=== PATIENT | female | born 1965 | race Caucasian/White ===

== ENCOUNTER 2018-11-05 01:21 | Inpatient (IN) ==
[2018-11-05] MEDS ORDERED: GI COCKTAIL ED USE PO ONE (01:46)
[2018-11-05] MEDS ORDERED: FAMOTIDINE 20MG IV PUSH 20 MG/5 ML SYR IV STA (01:46)
[2018-11-05 02:34] LABS: Basophils # (auto) 0.01 K/uL (0-0.2); Basophils % (auto) 0.1 %; Eosinophils # (auto) 0.02 K/uL (0-0.5); Eosinophils % (auto) 0.2 %; Hematocrit (blood only) 38.3 % (37-47); Hemoglobin 13.9 g/dL (12.0-16.0); Immature Granulocytes # (auto) 0.05 K/uL (0.00-0.02); Immature Granulocytes % (auto) 0.4 %; Lymphocytes # (auto) 1.54 K/uL (1.2-3.4); Lymphocytes % (auto) 13.1 %; Mean Corpuscular Hgb Conc 36.3 g/dL (32-36); Mean Corpuscular Volume 89.1 fL (80-100); Mean Platelet Volume 8.8 fL (7.4-10.4); Monocytes # (auto) 0.71 K/uL (0.11-0.59); Neutrophils # (auto) 9.42 K/uL (1.4-6.5); Neutrophils % (auto) 80.2 %; Platelet Count 215 K/uL (130-400); RDW Standard Deviation 41.9 fL (36.4-46.3); White Blood Count 11.75 K/uL (4.8-10.8)
[2018-11-05 03:13] LABS: Alanine Aminotransferase 48 U/L (12-78); Albumin Level 3.9 gm/dl (3.4-5.0); Alkaline Phosphatase 100 U/L (45-117); Aspartate Aminotransferase 58 U/L (15-37); Bilirubin,Total 0.7 mg/dl (0.2-1); Blood Urea Nitrogen 5 mg/dl (7-18); Calcium 8.5 mg/dl (8.5-10.1); Carbon Dioxide 25 mmol/L (21-32); Chloride 80 mmol/L (98-107); Creatinine Clr Calc Pharmacy 101.1 ml/min; Est GFR (Non-African American) 93.1; Globulin 3.8 gm/dl (2.5-4.0); Glucose 112 mg/dl (70-99); Potassium 3.9 mmol/L (3.5-5.1); Sodium 117 mmol/L (136-145); Total Protein 7.7 gm/dl (6.4-8.2); Troponin I < 0.015 ng/ml (0-0.045)
[2018-11-05 03:55] LABS: Appearance Urine Cloudy (Clear); Bacteria Urine Automated Negative (Negative); Bilirubin Urine Negative (Negative); Blood Urine Negative (Negative); Color Urine Yellow; Epithelial Cell Urine Auto >30 /lpf (0-5); Glucose Urine UA Negative (Negative); Ketones Urine Trace (Negative); Leukocyte Esterase Urine Negative (Negative); Nitrite Urine Negative (Negative); Protein Urine Negative (Negative); Urobilinogen Urine Negative (Negative); pH Urine 6.5 (4.5-7.5)
[2018-11-05 04:32] LABS: RBC Urine Automated 0-4 /hpf (0-4)
--- NOTE | 2018-11-05 05:26 | History & Physical Report ---
Date of Service November 05, 2018 Assessment & Plan (1) Hyponatremia: [id number]. No neurological complaints. Unknown baseline Na level, document from 2009 mentions Na of 125 in setting of GI illness so hyponatremia may be chronic to some degree, Most likely multifactorial - beer potomania and low solute intake in addition to HCTZ use, less likely Fluoxetine use, GI losses. Patient does appear mildly dry on exam as well. -Admit to PCU -Check urine and serum osmolality -Check urine Na -Check TSH -Check lipid panel -Monitor BMP q 4 hours -Additional testing pending results above -Hold HCTZ for now Present on Admission?: Yes (2) Abdominal pain: Abdominal exam relatively benign. Labs to include LFTs and Lipase unremarkable. ?GERD ?Gas -Continue Omeprazole 20mg po daily -Zofran PRN -Simethicone PRN Present on Admission?: Yes (3) Hypertension: Blood pressure elevated at present -Hold HCTZ due to hyponatremia -Continue Lisinopril -Consider starting Amlodipine/CCB -Continue to monitor Present on Admission?: Yes (4) GERD (gastroesophageal reflux disease): Chronic. -Continue Omeprazole daily Present on Admission?: Yes (5) Tobacco abuse: +Tobacco use - 1ppd for years. -Nicoderm 21mg patch -Tobacco cessation counseling Present on Admission?: Yes (6) Alcohol dependence: Patient reports drinking 15 beers/day, last drink yesterday afternoon. No history of withdrawal symptoms or seizures. EtOH level=0 -Check B12 and Folate level -AWSS at risk protocol with IV Ativan -Banana bag x 1 -Thiamine 100mg po daily (7) Anxiety and depression: Chronic, stable -Continue Fluoxetine 20mg po daily (8) Dyslipidemia: Check lipid panel -Continue Atorvastatin 10mg po daily F/E/N - Banana bag x 500mg then NSS at 125mL/hr x 1 liter, monitor Na q 4 hours, check Mg and PO4 x 1, Regular diet as tolerated. May need fluid restriction if workup suggestive of SIADH Ppx - low risk for DVT Code - Full Dispo- Admit to PCU History of Present Illness Chief Complaint: abdominal pain Primary Care Provider: Marissa Carl, DO 53yo C female with history of HTN, GERD, Anxiety/Depression presenting with abdominal pain. Patient began having lower abdominal cramping at appx 18:00 last evening. Also with nausea and non-bloody/non-bilious emesis and 4-5 episodes of watery diarrhea. Patient denies fever but has had some subjective chills. Denies BRINK, visual changes, seizure, confusion/AMS. +Heavy EtOH use - patient reports drinking 15 beers/day. Poor appetite and decreased PO intake Vx=415 today, uncertain if chronic or acute. Record from 2009 mention Na of 125 ER Course: Maalox/Simethicone, Pepcid Allergies Allergy/AdvReac Type Severity Reaction Status Date / Time No Known Allergies Allergy Unknown Verified 11/05/18 04:55 Home Medications Home Medications Medication Instructions Recorded Confirmed Type atorvastatin 10 mg PO DAILY 11/05/18 11/05/18 History fluoxetine 20 mg PO DAILY 11/05/18 11/05/18 History hydrochlorothiazide 12.5 mg PO DAILY 11/05/18 11/05/18 History lisinopril 40 mg PO DAILY 11/05/18 11/05/18 History omeprazole 20 mg PO DAILY 11/05/18 11/05/18 History Past Med/Surg History Medical History Anxiety and depression EtOH dependence GERD (gastroesophageal reflux disease) Hypertension Hyponatremia Surgical History History of appendectomy History of tubal ligation Family History Other Coronary heart disease Diabetes Hypertension Social History Feels Safe at Home: Yes Smoking Status: Current every day smoker Hx Alcohol Use: Yes Hx Substance Use: No Review of Systems Review of Systems: All systems reviewed & are unremarkable except as noted in HPI & below +chills +cough productive for clear sputum, chronic +nausea and vomiting as above +diarrhea +decresaed UOP Physical Exam Physical Exam: General: patient resting comfortably, NAD, non-toxic in appe arance, AA&O x 4 Skin: warm, dry, intact, +telangiectasias on face HEENT: NC/AT, PERRL, EOMI, anicteric sclera, conjunctiva without injection, external ear normal to inspection and nontender, nares patent, moist mucus membranes, dentition intact, no oropharyngeal lesions, neck supple, trachea midline, no LAD, no thyromegaly, no JVD Heart: +S1/S2, regular, no m/r/g Lungs: equal air entry bilaterally, no rales/rhonchi/wheezes Abd: obese, +BS, soft, ND, no masses/organomegaly/ascites, diffusely tender with deep palpation, no rebound/guarding/peritoneal signs Ext: warm, 2+ pulses in UE/LE bilaterally, no clubbing/cyanosis or edema Neuro: nonfocal, patient AA&O x 4, speech intact, no facial droop, moving all extremities on command with equal strength 5/5 Results & Data Vital Signs (Past 12 Hours) Vital Signs Temp Pulse Resp BP BP Pulse Ox 11/05/18 03:22 18 182/92 H 98 11/05/18 01:24 36.4 C L 91 H 18 183/88 H 98 Laboratory Results Lab Results 11/05/18 11/05/18 11/05/18 Range/Units 02:22 02:22 02:22 WBC 11.75 H (4.8-10.8) K/uL RBC 4.30 (4.2-5.4) M/uL Hgb 13.9 (12.0-16.0) g/dL Hct 38.3 (37-47) % MCV 89.1 (80-100) fL MCH 32.3 (25-34) pg MCHC 36.3 H (32-36) g/dL RDW Std Deviation 41.9 (36.4-46.3) fL RDW Coeff of Nadeen 13.0 (11.5-14.5) % Plt Count 215 (130-400) K/uL MPV 8.8 (7.4-10.4) fL Immature Gran % (Auto) 0.4 % Neut % (Auto) 80.2 % Lymph % (Auto) 13.1 % [place] % (Auto) 6.0 % Eos % (Auto) 0.2 % Baso % (Auto) 0.1 % Immature Gran # (Auto) 0.05 H (0.00-0.02) K/uL Neut # (Auto) 9.42 H (1.4-6.5) K/uL Lymph # (Auto) 1.54 (1.2-3.4) K/uL [place] # (Auto) 0.71 H (0.11-0.59) K/uL Eos # (Auto) 0.02 (0-0.5) K/uL Baso # (Auto) 0.01 (0-0.2) K/uL Sodium 117 L* (136-145) mmol/L Potassium 3.9 (3.5-5.1) mmol/L Chloride 80 L (98-107) mmol/L Carbon Dioxide 25 (21-32) mmol/L Anion Gap 13.0 H (3-11) BUN 5 L (7-18) mg/dl Creatinine 0.74 (0.6-1.2) mg/dl Est Cr Clr Drug Dosing 101.1 ml/min Est GFR ( Amer) 108.0 Est GFR (Non-Af Amer) 93.1 BUN/Creatinine Ratio 7.0 L (10-20) Glucose 112 H (70-99) mg/dl Calcium 8.5 (8.5-10.1) mg/dl Total Bilirubin 0.7 (0.2-1) mg/dl AST 58 H (15-37) U/L ALT 48 (12-78) U/L Alkaline Phosphatase 100 (45-117) U/L Troponin I < 0.015 (0-0.045) ng/ml Total Protein 7.7 (6.4-8.2) gm/dl Albumin 3.9 (3.4-5.0) gm/dl Globulin 3.8 (2.5-4.0) gm/dl Albumin/Globulin Ratio 1.0 (0.9-2) Lipase 78 (73-393) U/L Urine Color Urine Appearance (Clear) Urine pH (4.5-7.5) Ur Specific [place] (1.000-1.030) Urine Protein (Negative) Urine Glucose (UA) (Negative) Urine Ketones (Negative) Urine Blood (Negative) Urine Nitrite (Negative) Urine Bilirubin (Negative) Urine Urobilinogen (Negative) Ur Leukocyte Esterase (Negative) Urine WBC (Auto) (0-5) /hpf Urine RBC (Auto) (0-4) /hpf U Hyaline Cast (Auto) (0-5) /lpf U Epithel Cells (Auto) (0-5) /lpf Urine Bacteria (Auto) (Negative) Urine Yeast Ethyl Alcohol mg/dL < 3.0 (0-3) mg/dl 11/05/18 Range/Units 03:45 WBC (4.8-10.8) K/uL RBC (4.2-5.4) M/uL Hgb (12.0-16.0) g/dL Hct (37-47) % MCV (80-100) fL MCH (25-34) pg MCHC (32-36) g/dL RDW Std Deviation (36.4-46.3) fL RDW Coeff of Nadeen (11.5-14.5) % Plt Count (130-400) K/uL MPV (7.4-10.4) fL Immature Gran % (Auto) % Neut % (Auto) % Lymph % (Auto) % [place] % (Auto) % Eos % (Auto) % Baso % (Auto) % Immature Gran # (Auto) (0.00-0.02) K/uL Neut # (Auto) (1.4-6.5) K/uL Lymph # (Auto) (1.2-3.4) K/uL [place] # (Auto) (0.11-0.59) K/uL Eos # (Auto) (0-0.5) K/uL Baso # (Auto) (0-0.2) K/uL Sodium (136-145) mmol/L Potassium (3.5-5.1) mmol/L Chloride (98-107) mmol/L Carbon Dioxide (21-32) mmol/L Anion Gap (3-11) BUN (7-18) mg/dl Creatinine (0.6-1.2) mg/dl Est Cr Clr Drug Dosing ml/min Est GFR ( Amer) Est GFR (Non-Af Amer) BUN/Creatinine Ratio (10-20) Glucose (70-99) mg/dl Calcium (8.5-10.1) mg/dl Total Bilirubin (0.2-1) mg/dl AST (15-37) U/L ALT (12-78) U/L Alkaline Phosphatase (45-117) U/L Troponin I (0-0.045) ng/ml Total Protein (6.4-8.2) gm/dl Albumin (3.4-5.0) gm/dl Globulin (2.5-4.0) gm/dl Albumin/Globulin Ratio (0.9-2) Lipase (73-393) U/L Urine Color Yellow Urine Appearance Cloudy A (Clear) Urine pH 6.5 (4.5-7.5) Ur Specific [place] 1.010 (1.000-1.030) Urine Protein Negative (Negative) Urine Glucose (UA) Negative (Negative) Urine Ketones Trace H (Negative) Urine Blood Negative (Negative) Urine Nitrite Negative (Negative) Urine Bilirubin Negative (Negative) Urine Urobilinogen Negative (Negative) Ur Leukocyte Esterase Negative (Negative) Urine WBC (Auto) 5-10 H (0-5) /hpf Urine RBC (Auto) 0-4 (0-4) /hpf U Hyaline Cast (Auto) 1-5 (0-5) /lpf U Epithel Cells (Auto) >30 H (0-5) /lpf Urine Bacteria (Auto) Negative (Negative) Urine Yeast Not Reportable Ethyl Alcohol mg/dL (0-3) mg/dl Diagnostic Findings CXR - NAD ECG Additional Comments: The study shows NSR at 87, normal axis and intervals, [id number], no acute ischemic changes Code Status & VTE Plan Code Status Full PG Care Time/CCT Total # of Minutes Spent Total Time Spent with Patient: Total time spent is greater than 50% in coordination of care (as documented) at patient's floor/unit and/or counseling patient: (1) Hypertension Hypertension type: essential hypertension Qualified Code(s): I10 - Essential (primary) hypertension (2) GERD (gastroesophageal reflux disease) Esophagitis presence: esophagitis presence not specified Qualified Code(s): K21.9 - Gastro-esophageal reflux disease without esophagitis (3) Alcohol dependence Substance use status: uncomplicated Qualified Code(s): F10.20 - Alcohol dependence, uncomplicated (4) Abdominal pain Abdominal location: generalized Qualified Code(s): R10.84 - Generalized abdominal pain
[2018-11-05] MEDS ORDERED: ACETAMINOPHEN 500 MG TAB ONE (05:29)
[2018-11-05] MEDS ORDERED: ONDANSETRON INJ 2 MG/ML 2 ML VIAL IV PRN (06:24)
[2018-11-05] MEDS ORDERED: ALBUTEROL HFA 8 GM INHALER INH PRN (06:24)
[2018-11-05] MEDS ORDERED: SIMETHICONE 80 MG CHEW PO PRN (06:24)
[2018-11-05] MEDS ORDERED: LORazepam 1 MG/2 ML VIAL IV PRN (06:24)
[2018-11-05] MEDS ORDERED: ACETAMINOPHEN 325 MG TAB PO PRN (06:24)
--- NOTE | 2018-11-05 06:40 | XRay Report ---
XR chest 1V portable HISTORY: 53 years-old Female epigastric abd pains acute epigastric abdominal pain COMPARISON: Acute abdominal series radiographs 08/30/2009 TECHNIQUE: Portable AP view of the chest FINDINGS: Cardiomediastinal and hilar silhouettes are unchanged. Mild subsegmental bibasilar opacities suggest atelectasis. No pneumothorax, pleural effusion or overt pulmonary edema. Degenerative changes of the shoulders and spine. IMPRESSION: No acute process. The above report was generated using voice recognition software. It may contain grammatical, syntax o r spelling errors. Electronically signed by: Joaquin Rizvi M.D. 11/05/2018 6:38 AM
[2018-11-05] MEDS ORDERED: MULTI-VITAMIN INFUSION 10 ML, THIAMINE HCL 100 MG, FOLIC ACID 1 MG in SODIUM CHLORIDE 0... IV SCH (06:45)
[2018-11-05 07:56] LABS: BUN Creatinine Ratio 7.3 (10-20); Calcium 8.5 mg/dl (8.5-10.1); Creatinine Clr Calc Pharmacy 118.4 ml/min; Est GFR (African American) 119.5; Est GFR (Non-African American) 103.1; Magnesium 1.6 mg/dl (1.8-2.4)
[2018-11-05 08:06] LABS: Folate (Folic Acid) 15.81 ng/ml (>5.38)
[2018-11-05 08:10] LABS: Phosphorus 3.3 mg/dl (2.5-4.9)
[2018-11-05] MEDS ORDERED: SODIUM CHLORIDE 0.9% 1000ML 1,000 ML IV SCH (09:00)
[2018-11-05] MEDS: FLUOXETINE HCL 20 MG CAP PO SCH (09:29)
[2018-11-05] MEDS: NICOTINE 21 MG/24 HR TDSY TD SCH (09:29)
[2018-11-05] MEDS: ATORVASTATIN 10 MG TAB PO SCH (09:29)
[2018-11-05] MEDS: LISINOPRIL 40 MG TAB PO SCH (09:29)
[2018-11-05] MEDS: THIAMINE HCL 100 MG TAB PO SCH (09:30)
[2018-11-05] MEDS: PANTOprazole 40 MG TAB PO SCH (09:30)
--- NOTE | 2018-11-05 10:16 | Nephrology Consultation ---
Date of Consultation November 05, 2018 Assessment & Plan (1) Hyponatremia: 53-year-old female with past medical history significant for hypertension questionable chronic hyponatremia, alcohol abuse in current active smoker admitted to the hospital with gets started this like symptoms and found to have acute hyponatremia. Sodium was 117 staying relatively stable at 118 this morning, has been on IV normal saline at 125 per hour. Hyponatremia most likely secondary to excessive free water intake and alcohol abuse with low solute intake, urine osmolality is really low. Clinically she is feeling better, no confusion or other neurological symptoms --discontinue IV fluid, limit free water intake to less than 1500 mL per day --going forward, avoid all thiazide diuretics if diuretics needed for hypertension or lower extremity edema, start on Lasix 20 milligram p.o. daily and increase dose as needed --consider age-appropriate screening including mammogram and colonoscopy, can be done as an outpatient --recommend chest x-ray with ongoing cough and history of active smoking --check serum sodium every 4 hours, increase serum sodium slowly Goal Sodium next well below or up to 124 --start on oral salt tablet 2 grams twice a day --strongly encouraged to limit drinking alcohol, quit smoking --discussed about the seriousness of hyponatremia specially if it is acute, can be life threatening including confusion, seizure and, coma. Will follow Thank you for allowing me to participate in your patient's care. It was a pleasure to see Samantha (2) Hypertension: (3) GERD (gastroesophageal reflux disease): (4) Anxiety and depression: (5) Abdominal pain: History of Present Illness Reason for Consultation: Samantha is a 53-year-old female with past medical history significant for chronic hyponatremia, history of alcohol and tobacco abuse, GERD admitted to the hospital with gastroenteritis and found to have acute hyponatremia. Nephrology consult was requested to manage hyponatremia. Electronic medical records including labs and imaging reviewed in detail during patient's visit. Samantha admitted to the hospital with nausea, vomiting, abdominal pain and diarrhea for 3 days. On admission lab showed acute hyponatremia with serum sodium 117 which slightly improved to 118 in the morning. Urine osmolality appropriately low at 70. She has been on IV normal saline at 125 mL/hour since admission as on admission she was found to be clinically volume depleted. No recent lab available however there was record that her sodium was 124 in 2009. She has history of alcohol abuse and drinks 15 beers per day. She reports not eating much over last few days but has been drinking more since 2 days prior to admission as she has been cramping and she fell like she was dehydrated. Current active smoker. No personal history of malignancy. Did not have any recent mammogram. TSH on admission was normal. No history of adrenal insufficiency, infected blood pressure has been running high. She has been on hydrochlorothiazide which is currently on hold. Was on lisinopril which was continued. Has history of anxiety and depression and has been on fluoxetine. Denies recent NSAID use. Attending Physician: mOid Phillips Allergies Allergy/AdvReac Type Severity Reaction Status Date / Time No Known Allergies Allergy Unknown Verified 11/05/18 04:55 Home Medications Home Medications Medication Instructions Recorded Confirmed Type atorvastatin 10 mg PO DAILY 11/05/18 11/05/18 History fluoxetine 20 mg PO DAILY 11/05/18 11/05/18 History hydrochlorothiazide 12.5 mg PO DAILY 11/05/18 11/05/18 History lisinopril 40 mg PO DAILY 11/05/18 11/05/18 History omeprazole 20 mg PO DAILY 11/05/18 11/05/18 History Patient History Medical History Anxiety and depression EtOH dependence GERD (gastroesophageal reflux disease) Hypertension Hyponatremia Surgical History History of appendectomy History of tubal ligation Family History Other Coronary heart disease Diabetes Hypertension Social History Preferred Language: [place] Communication Ability: Effective Beliefs That Will Affect Care: None Current Living Situation: Significant Other Feels Safe at Home: Yes Smoking Status: Current every day smoker Tobacco Type: cigarettes Second Hand Exposure: Yes Hx Alcohol Use: Yes Alcohol type: beer Hx Substance Use: No Review of Systems Review of Systems: Detailed review of system was otherwise unremarkable. Physical Exam Constitutional: WD/WN, vitals as above Eyes: PERRL, conjunctivae normal, anicteric sclerae ENMT: external ear and nose normal, oropharynx normal Neck: trachea midline, no thyromegaly Respiratory: normal respiratory effort, lungs clear to auscultation Cardiovascular: RRR, no murmur, no edema Gastrointestinal (Abdomen): normal bowel sounds, soft, nontender, no hepatosplenomegaly Skin: no rashes, warm and dry Neurologic: PERRL, EOMI, accommodation nl, no face palsy, no dysarthria Psychiatric: A+Ox3, euthymic affect Results & Data Vital Signs (Past 12 Hours) Vital Signs Temp Pulse Pulse Resp BP BP BP 11/05/18 07:34 36.6 C 78 19 164/95 H 11/05/18 06:41 88 11/05/18 06:26 36.5 C 56 L 20 170/81 H 11/05/18 05:00 89 18 180/106 H 11/05/18 03:22 18 182/92 H 11/05/18 01:24 36.4 C L 91 H 18 183/88 H Pulse Ox 11/05/18 07:34 96 11/05/18 06:41 11/05/18 06:26 93 11/05/18 05:00 94 11/05/18 03:22 98 11/05/18 01:24 98 (1) GERD (gastroesophageal reflux disease) Esophagitis presence: esophagitis presence not specified Qualified Code(s): K21.9 - Gastro-esophageal reflux disease without esophagitis (2) Abdominal pain Abdominal location: generalized Qualified Code(s): R10.84 - Generalized abdominal pain (3) Hypertension Hypertension type: essential hypertension Qualified Code(s): I10 - Essential (primary) hypertension
[2018-11-05] MEDS: SODIUM CHLORIDE 1 GM TABLET PO SCH ×2 (11:40→20:18)
[2018-11-05 11:47] LABS: BUN Creatinine Ratio 7.2 (10-20); Calcium 8.4 mg/dl (8.5-10.1); Creatinine Clr Calc Pharmacy 120.3 ml/min; Est GFR (African American) 120.2; Est GFR (Non-African American) 103.7; Potassium 3.9 mmol/L (3.5-5.1)
[2018-11-05 14:54] LABS: BUN Creatinine Ratio 7.8 (10-20); Calcium 8.4 mg/dl (8.5-10.1); Creatinine Clr Calc Pharmacy 108.1 ml/min; Est GFR (Non-African American) 100.1; Potassium 4.2 mmol/L (3.5-5.1)
[2018-11-05 19:01] LABS: BUN Creatinine Ratio 6.4 (10-20); Calcium 8.4 mg/dl (8.5-10.1); Creatinine Clr Calc Pharmacy 71.7 ml/min; Est GFR (African American) 71.5; Est GFR (Non-African American) 61.7; Potassium 4.1 mmol/L (3.5-5.1)
[2018-11-05 22:32] LABS: BUN Creatinine Ratio 8.5 (10-20); Calcium 8.9 mg/dl (8.5-10.1); Creatinine Clr Calc Pharmacy 82.9 ml/min; Est GFR (African American) 85.2; Est GFR (Non-African American) 73.5; Potassium 4.2 mmol/L (3.5-5.1)
--- NOTE | 2018-11-05 22:44 | Emergency Department Note ---
History of Present Illness General Chief complaint: Dehydration Stated complaint: DEHYDRATED BODY ACHES Time Seen by Provider: 11/05/18 01:30 History of Present Illness Maximum Pain Intensity: 8 This is a 53-year-old female presenting to the emergency department feeling dehydrated. The patient states that she is having cramping across the top of her abdomen, bringing her to the emergency department this evening. The patient states that she has had intermittent symptoms of body cramping past 1 to 2 weeks. She has not had fever or chills. No nausea or vomiting. The patient has a history of dyslipidemia, GERD, and hypertension. She does not have any new medication changes. Patient admits to drinking at least 10 beers on a daily basis. 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 The patient rates her current discomfort in 8/10, intermittent, and not improved with [id number] medicine. Home Medications Home Medications Medication Instructions Recorded Confirmed Type atorvastatin 10 mg PO DAILY 11/05/18 11/05/18 History fluoxetine 20 mg PO DAILY 11/05/18 11/05/18 History hydrochlorothiazide 12.5 mg PO DAILY 11/05/18 11/05/18 History lisinopril 40 mg PO DAILY 11/05/18 11/05/18 History omeprazole 20 mg PO DAILY 11/05/18 11/05/18 History Allergies Allergy/AdvReac Type Severity Reaction Status Date / Time No Known Allergies Allergy Unknown Verified 11/05/18 04:55 Past Med/Surg History Medical History Anxiety and depression EtOH dependence GERD (gastroesophageal reflux disease) Hypertension Hyponatremia Surgical History History of appendectomy History of tubal ligation Family History Other Coronary heart disease Diabetes Hypertension Social History Preferred Language: [place] Communication Ability: Effective Beliefs That Will Affect Care: None Current Living Situation: Significant Other Feels Safe at Home: Yes Smoking Status: Current every day smoker Tobacco Type: cigarettes Second Hand Exposure: Yes Hx Alcohol Use: Yes Alcohol type: beer Hx Substance Use: No Review of Systems A total of 10 systems reviewed and were otherwise negative Physical Exam Vital Signs Vital Signs - 24 hr 11/05/18 01:24 11/05/18 03:22 Temperature 36.4 C L Temperature Source Oral Sepsis Recent Fever Within 48 Hours No Sepsis Action Taken by Nursing No Action Required Pulse Rate 91 H Respiratory Rate 18 18 Respiratory Effort / Characteristics Non-Labored Non-Labored Respiratory Depth Normal Normal Blood Pressure 183/88 H Blood Pressure [Left Arm] 182/92 H Blood Pressure Mean 119 Blood Pressure Mean [Left Arm] 122 Pulse Oximetry 98 98 Oxygen Delivery Method Room Air Room Air VITALS: Vitals are noted on the nurse's note and reviewed by myself. Vital signs stable. GENERAL: Well-developed, well-nourished, white female, who is in no acute distress and resting comfortably. Patient is cooperative with the examination. HEAD: Normocephalic atraumatic. NECK: Supple without nuchal rigidity. No lymphadenopathy. No thyromegaly. Cervical spine is nontender. HEART: Regular rate and rhythm without murmurs gallops or rubs. LUNGS: Clear to auscultation bilaterally without wheezes, rales or rhonchi. No retractions or accessory muscle use. ABDOMEN: Positive normal bowel sounds x 4. Soft, nontender, without masses or organomegaly. No guarding or rebound tenderness. MUSCULOSKELETAL: No muscle atrophy, erythema, or edema noted. Full range of motion in all extremities. NEURO: Patient was alert and oriented to person place and time. CN II through XII grossly intact. No focal neurological deficits. Deep tendon reflexes 2+ throughout. GCS 15. SKIN: The skin was without rashes, erythema, edema, or bruising. Capillary refill less than 2 seconds. Course Administered Medications Atorvastatin Calcium (Lipitor) 10 mg PO DAILY [facility] Stop: 12/05/18 08:59 Last Admin: 11/05/18 09:29 Dose: 10 mg Documented by: [id number] Fluoxetine HCl (Prozac) 20 mg PO DAILY [facility] Stop: 12/05/18 08:59 Last Admin: 11/05/18 09:29 Dose: 20 mg Documented by: [id number] Lisinopril (Zestril) 40 mg PO DAILY [facility] Stop: 12/05/18 08:59 Last Admin: 11/05/18 09:29 Dose: 40 mg Documented by: [id number] Miscellaneous (Remove Nicoderm Patch) 1 ea N/A HS [facility] Stop: 12/05/18 20:59 Last Admin: 11/05/18 20:19 Dose: 1 ea Documented by: [id number] Nicotine (Nicoderm Cq) 21 mg TD QAM [facility] Stop: 12/05/18 08:59 Last Admin: 11/05/18 09:29 Dose: 21 mg Documented by: [id number] Pantoprazole Sodium (Protonix) 40 mg PO DAILY [facility] Stop: 12/05/18 08:59 Last Admin: 11/05/18 09:30 Dose: 40 mg Documented by: [id number] Sodium Chloride (Sodium Chloride) 2 gm PO BID [facility] Stop: 12/05/18 11:14 Last Admin: 11/05/18 20:18 Dose: 2 gm Documented by: [id number] Admin: 11/05/18 11:40 Dose: 2 gm Documented by: [id number] Thiamine HCl (Vitamin B-1) 100 mg PO [facility] Stop: 12/05/18 06:44 Last Admin: 11/05/18 09:30 Dose: 100 mg Documented by: [id number] Discontinued Medications Acetaminophen (Tylenol) Confirm Administered Dose 1,000 mg .ROUTE .STK-MED ONE Stop: 11/05/18 05:30 Last Admin: 11/05/18 05:51 Dose: 1,000 mg Documented by: [id number] Al Hydrox/Mg Hydrox/Simethicone () 1 dose PO ONE ONE Stop: 11/05/18 01:47 Last Admin: 11/05/18 02:27 Dose: 1 dose Documented by: [id number] Famotidine (Pepcid 20mg Iv Push) 20 mg in 5 mls @ 2.5 mls/min IV NOW STA Stop: 11/05/18 01:47 Last Admin: 11/05/18 02:27 Dose: 2.5 mls/min Documented by: [id number] Multivitamins 10 ml/ Thiamine HCl 100 mg/ Folic Acid 1 mg/Sodium Chloride 1,011.2 mls @ 500 mls/hr IV .Q2H2M [facility] Stop: 11/05/18 08:46 Last Infusion: 11/05/18 09:10 Dose: 0 mls/hr Documented by: [id number] Admin: 11/05/18 07:06 Dose: 500 mls/hr Documented by: [id number] Sodium Chloride (Nss 1000ml) 1,000 mls @ 125 mls/hr IV .Q8H [facility] Stop: 11/05/18 16:59 Last Infusion: 11/05/18 16:00 Dose: 0 mls/hr Documented by: [id number] Admin: 11/05/18 09:32 Dose: 125 mls/hr Documented by: [id number] Medical Decision Making Differential Diagnosis Differential diagnosis: Etiologies such as biliary colic, cholecystitis, hepatitis, pancreatitis, cardiac disease, pancreatitis, gastritis, peptic ulcer disease, appendicitis, cystitis, diverticulitis, mesenteric ischemia, inflammatory bowel disease, ileus, bowel obstruction, testicular/adnexal torsion, aortic pathology, shingles, as well as others were considered Laboratory Data Result diagrams: 11/05/18 02:22 11/05/18 22:05 Lab Results 11/05/18 11/05/18 11/05/18 Range/Units 02:22 02:22 02:22 WBC 11.75 H (4.8-10.8) K/uL RBC 4.30 (4.2-5.4) M/uL Hgb 13.9 (12.0-16.0) g/dL Hct 38.3 (37-47) % MCV 89.1 (80-100) fL MCH 32.3 (25-34) pg MCHC 36.3 H (32-36) g/dL RDW Std Deviation 41.9 (36.4-46.3) fL RDW Coeff of Nadeen 13.0 (11.5-14.5) % Plt Count 215 (130-400) K/uL MPV 8.8 (7.4-10.4) fL Immature Gran % (Auto) 0.4 % Neut % (Auto) 80.2 % Lymph % (Auto) 13.1 % [place] % (Auto) 6.0 % Eos % (Auto) 0.2 % Baso % (Auto) 0.1 % Immature Gran # (Auto) 0.05 H (0.00-0.02) K/uL Neut # (Auto) 9.42 H (1.4-6.5) K/uL Lymph # (Auto) 1.54 (1.2-3.4) K/uL [place] # (Auto) 0.71 H (0.11-0.59) K/uL Eos # (Auto) 0.02 (0-0.5) K/uL Baso # (Auto) 0.01 (0-0.2) K/uL Sodium 117 L* (136-145) mmol/L Potassium 3.9 (3.5-5.1) mmol/L Chloride 80 L (98-107) mmol/L Carbon Dioxide 25 (21-32) mmol/L Anion Gap 13.0 H (3-11) BUN 5 L (7-18) mg/dl Creatinine 0.74 (0.6-1.2) mg/dl Est Cr Clr Drug Dosing 101.1 ml/min Est GFR ( Amer) 108.0 Est GFR (Non-Af Amer) 93.1 BUN/Creatinine Ratio 7.0 L (10-20) Glucose 112 H (70-99) mg/dl Calcium 8.5 (8.5-10.1) mg/dl Total Bilirubin 0.7 (0.2-1) mg/dl AST 58 H (15-37) U/L ALT 48 (12-78) U/L Alkaline Phosphatase 100 (45-117) U/L Troponin I < 0.015 (0-0.045) ng/ml Total Protein 7.7 (6.4-8.2) gm/dl Albumin 3.9 (3.4-5.0) gm/dl Globulin 3.8 (2.5-4.0) gm/dl Albumin/Globulin Ratio 1.0 (0.9-2) Lipase 78 (73-393) U/L Urine Color Urine Appearance (Clear) Urine pH (4.5-7.5) Ur Specific [place] (1.000-1.030) Urine Protein (Negative) Urine Glucose (UA) (Negative) Urine Ketones (Negative) Urine Blood (Negative) Urine Nitrite (Negative) Urine Bilirubin (Negative) Urine Urobilinogen (Negative) Ur Leukocyte Esterase (Negative) Urine WBC (Auto) (0-5) /hpf Urine RBC (Auto) (0-4) /hpf U Hyaline Cast (Auto) (0-5) /lpf U Epithel Cells (Auto) (0-5) /lpf Urine Bacteria (Auto) (Negative) Urine Yeast Ethyl Alcohol mg/dL < 3.0 (0-3) mg/dl 11/05/18 Range/Units 03:45 WBC (4.8-10.8) K/uL RBC (4.2-5.4) M/uL Hgb (12.0-16.0) g/dL Hct (37-47) % MCV (80-100) fL MCH (25-34) pg MCHC (32-36) g/dL RDW Std Deviation (36.4-46.3) fL RDW Coeff of Nadeen (11.5-14.5) % Plt Count (130-400) K/uL MPV (7.4-10.4) fL Immature Gran % (Auto) % Neut % (Auto) % Lymph % (Auto) % [place] % (Auto) % Eos % (Auto) % Baso % (Auto) % Immature Gran # (Auto) (0.00-0.02) K/uL Neut # (Auto) (1.4-6.5) K/uL Lymph # (Auto) (1.2-3.4) K/uL [place] # (Auto) (0.11-0.59) K/uL Eos # (Auto) (0-0.5) K/uL Baso # (Auto) (0-0.2) K/uL Sodium (136-145) mmol/L Potassium (3.5-5.1) mmol/L Chloride (98-107) mmol/L Carbon Dioxide (21-32) mmol/L Anion Gap (3-11) BUN (7-18) mg/dl Creatinine (0.6-1.2) mg/dl Est Cr Clr Drug Dosing ml/min Est GFR ( Amer) Est GFR (Non-Af Amer) BUN/Creatinine Ratio (10-20) Glucose (70-99) mg/dl Calcium (8.5-10.1) mg/dl Total Bilirubin (0.2-1) mg/dl AST (15-37) U/L ALT (12-78) U/L Alkaline Phosphatase (45-117) U/L Troponin I (0-0.045) ng/ml Total Protein (6.4-8.2) gm/dl Albumin (3.4-5.0) gm/dl Globulin (2.5-4.0) gm/dl Albumin/Globulin Ratio (0.9-2) Lipase (73-393) U/L Urine Color Yellow Urine Appearance Cloudy A (Clear) Urine pH 6.5 (4.5-7.5) Ur Specific [place] 1.010 (1.000-1.030) Urine Protein Negative (Negative) Urine Glucose (UA) Negative (Negative) Urine Ketones Trace H (Negative) Urine Blood Negative (Negative) Urine Nitrite Negative (Negative) Urine Bilirubin Negative (Negative) Urine Urobilinogen Negative (Negative) Ur Leukocyte Esterase Negative (Negative) Urine WBC (Auto) 5-10 H (0-5) /hpf Urine RBC (Auto) 0-4 (0-4) /hpf U Hyaline Cast (Auto) 1-5 (0-5) /lpf U Epithel Cells (Auto) >30 H (0-5) /lpf Urine Bacteria (Auto) Negative (Negative) Urine Yeast Not Reportable Ethyl Alcohol mg/dL (0-3) mg/dl Imaging Data Radiologist's Impression: XR chest 1V portable HISTORY: 53 years-old Female epigastric abd pains acute epigastric abdominal pain COMPARISON: Acute abdominal series radiographs 08/30/2009 TECHNIQUE: Portable AP view of the chest FINDINGS: Cardiomediastinal and hilar silhouettes are unchanged. Mild subsegmental bibasilar opacities suggest atelectasis. No pneumothorax, pleural effusion or overt pulmonary edema. Degenerative changes of the shoulders and spine. IMPRESSION: No acute process. MDM Narrative Physical exam and history were performed. Nursing notes, EMR, and Medication List were personally reviewed. Patient appears to have abdominal discomfort primarily across her upper abdomen. She does describe this as a cramping. On exam she does not have significant findings, however she does drink alcohol on a regular basis. IV access was established and labs were obtained. Patient was given Pepcid and a GI cocktail here in the ER. Chest x-ray was performed and reviewed by myself and radiology showing no acute process. The patient's blood work is as above and was reviewed. She does not have a significantly elevated white blood cell count or gross anemia. Lipase and transaminases are not diagnostic. The patient's sodium is remarkably low at 117. On reevaluation the patient is intact with her mental status. She does not appear lethargic or coma like. GCS continues to be 15. I did discuss possible causes of a low sodium, however the patient does not admit to drinking free water other than her alcohol. Overall the patient is concerning as she is experiencing abdominal cramping with a low sodium. The case was discussed with the on-call hospitalist who agreed to evaluate the patient here in the department. Please see their dictation for further patient course, plan, and disposition. The chart was completed utilizing [employer] Voice Recognition Software. Grammatical errors, random word insertions, pronoun errors, and incomplete sentences are an occasional consequence of this system due to software limitations, ambient noise, and hardware issues. Any formal questions or concerns about the content, text, or information contained within the body of this dictation should be directly addressed to the provider for clarification. . Impression & Plan Hyponatremia Discharge Plan Visit Data *Final* Discharge Date/Time: 11/05/18 06:10 Chief Complaint: Dehydration Stated Complaint: DEHYDRATED BODY ACHES ED Provider: Lena Burnette ED Midlevel Provider: Homero Negrete Discharge Problem: Hyponatremia Patient Disposition: Admitted As Inpatient Discharge Instructions Interventions: ED Discharge Assessment Last Done: 11/05/18 06:10
[2018-11-06 07:44] LABS: Basophils # (auto) 0.02 K/uL (0-0.2); Basophils % (auto) 0.3 %; Eosinophils # (auto) 0.02 K/uL (0-0.5); Eosinophils % (auto) 0.3 %; Hematocrit (blood only) 34.4 % (37-47); Hemoglobin 11.9 g/dL (12.0-16.0); Immature Granulocytes # (auto) 0.01 K/uL (0.00-0.02); Immature Granulocytes % (auto) 0.2 %; Lymphocytes # (auto) 1.65 K/uL (1.2-3.4); Lymphocytes % (auto) 25.1 %; Mean Corpuscular Hgb Conc 34.6 g/dL (32-36); Mean Corpuscular Volume 93.2 fL (80-100); Mean Platelet Volume 9.2 fL (7.4-10.4); Monocytes # (auto) 0.51 K/uL (0.11-0.59); Monocytes % (auto) 7.8 %; Neutrophils # (auto) 4.37 K/uL (1.4-6.5); Neutrophils % (auto) 66.3 %; Platelet Count 199 K/uL (130-400); RDW Coefficient of Variation 13.4 % (11.5-14.5); RDW Standard Deviation 45.7 fL (36.4-46.3); Red Blood Count 3.69 M/uL (4.2-5.4); White Blood Count 6.58 K/uL (4.8-10.8)
[2018-11-06] MEDS: SODIUM CHLORIDE 1 GM TABLET PO SCH (09:13)
[2018-11-06] MEDS: ATORVASTATIN 10 MG TAB PO SCH (09:14)
[2018-11-06] MEDS: NICOTINE 21 MG/24 HR TDSY TD SCH (09:14)
[2018-11-06] MEDS: THIAMINE HCL 100 MG TAB PO SCH (09:14)
[2018-11-06] MEDS: PANTOprazole 40 MG TAB PO SCH (09:14)
[2018-11-06] MEDS: LISINOPRIL 40 MG TAB PO SCH (09:14)
[2018-11-06] MEDS: FLUOXETINE HCL 20 MG CAP PO SCH (09:14)
[2018-11-06 09:28] LABS: BUN Creatinine Ratio 10.8 (10-20); Calcium 8.6 mg/dl (8.5-10.1); Creatinine Clr Calc Pharmacy 125.5 ml/min; Est GFR (African American) 122.1; Est GFR (Non-African American) 105.4; Potassium 4.1 mmol/L (3.5-5.1)
--- NOTE | 2018-11-06 09:46 | Nephrology Progress Note ---
Date of Service November 06, 2018 Assessment & Plan (1) Hyponatremia: 53-year-old female with past medical history significant for hypertension questionable chronic hyponatremia, alcohol abuse in current active smoker admitted to the hospital with gets started this like symptoms and found to have acute hyponatremia. Sodium was 117 staying relatively stable at 118 this morning, has been on IV normal saline at 125 per hour. Hyponatremia most likely secondary to excessive free water intake and alcohol abuse with low solute intake, urine osmolality is really low. Clinically she is feeling better, no confusion or other neurological symptoms Na improved to 131, overall doing better. --continue to limit free water intake to less than 1500 mL per day --going forward, avoid all thiazide diuretics if diuretics needed for hypertension or lower extremity edema, start on Lasix 20 milligram p.o. daily and increase dose as needed --consider age-appropriate screening including mammogram and colonoscopy, can be done as an outpatient --continue on oral salt tablet 1 grams twice a day on discharge --strongly encouraged to limit drinking alcohol, quit smoking --again about the seriousness of hyponatremia specially if it is acute, can be life threatening including confusion, seizure and, coma. --pt request help finding a PCP on discharge. Will follow Thank you for allowing me to participate in your patient's care. It was a pleasure to see Samantha Subjective Samantha was seen and examined in her room this am. She is feeling a lot better and wants to go home. Na improved to 131. Review of Systems Review of Systems: Detailed review of system was otherwise unremarkable. Physical Exam Constitutional: WD/WN, vitals as above Respiratory: normal respiratory effort, lungs clear to auscultation Cardiovascular: RRR, no murmur, no edema Neurologic: PERRL, EOMI, accommodation nl, no face palsy, no dysarthria Psychiatric: A+Ox3, euthymic affect Results & Data Vital Signs (Past 12 Hours) Vital Signs Temp Pulse Resp BP BP Pulse Ox 11/06/18 07:38 36.5 C 83 18 145/85 H 93 11/06/18 03:48 36.6 C 100 H 16 142/86 H 95 11/06/18 00:24 36.6 C 93 H 18 156/92 H 97
[2018-11-06 11:49] VITALS: TEMP 98.1
[2018-11-06 15:39] VITALS: BP 146/85; O2SAT 95
[2018-11-06 17:40] VITALS: PULSE 83
--- NOTE | 2018-11-13 14:10 | Discharge Summary ---
Date of Service November 06, 2018 Admission HPI Per Admitting Provider 53yo C female with history of HTN, GERD, Anxiety/Depression presenting with abdominal pain. Patient began having lower abdominal cramping at appx 18:00 last evening. Also with nausea and non-bloody/non-bilious emesis and 4-5 episodes of watery diarrhea. Patient denies fever but has had some subjective chills. Denies BRINK, visual changes, seizure, confusion/AMS. +Heavy EtOH use - patient reports drinking 15 beers/day. Poor appetite and decreased PO intake Ks=008 today, uncertain if chronic or acute. Record from 2009 mention Na of 125 ER Course: Maalox/Simethicone, Pepcid Principal Diagnosis hyponatremia Discharge Exam General: patient resting comfortably, NAD, non-toxic in appearance, AA&O x 4 Skin: warm, dry, intact, +telangiectasias on face HEENT: NC/AT, PERRL, EOMI, anicteric sclera, conjunctiva without injection, trachea midline, no LAD, no thyromegaly, no JVD Heart: +S1/S2, regular, no m/r/g Lungs: equal air entry bilaterally, no rales/rhonchi/wheezes Abd: obese, +BS, soft, ND, no masses/organomegaly/ascites, diffusely tender with deep palpation, no rebound/guarding/peritoneal signs Ext: warm, 2+ pulses in UE/LE bilaterally, no clubbing/cyanosis or edema Neuro: nonfocal, patient AA&O x 4, speech intact, no facial droop, moving all extremities on command with equal strength 5/ Discharge Data Allergies Allergy/AdvReac Type Severity Reaction Status Date / Time No Known Allergies Allergy Unknown Verified 11/05/18 04:55 Consultations 11/05/18 04:25 ED Decision to Admit Stat 11/05/18 09:04 Consult Nephrology Routine 11/06/18 16:48 Consult [facility] [employer] Routine Hospital Course (1) Hyponatremia: [id number]. No neurological complaints. Unknown baseline Na level, document from 2009 mentions Na of 125 in setting of GI illness so hyponatremia may be chronic to some degree, Most likely multifactorial - beer potomania and low solute intake in addition to HCTZ use, less likely Fluoxetine use, GI losses. Patient does appear mildly dry on exam as well. -Admit to PCU -Check urine and serum osmolality -Check urine Na -Check TSH -Check lipid panel -Monitor BMP q 4 hours -Additional testing pending results above -Hold HCTZ for now On day of discharge: Patient requesting discharge. Appreciate input from nephro: Na improved to 131, overall doing better. --continue to limit free water intake to less than 1500 mL per day --going forward, avoid all thiazide diuretics if diuretics needed for hypertension or lower extremity edema, start on Lasix 20 milligram p.o. daily and increase dose as needed --consider age-appropriate screening including mammogram and colonoscopy, can be done as an outpatient --continue on oral salt tablet 1 grams twice a day on discharge --strongly encouraged to limit drinking alcohol, quit smoking --again counselled about the seriousness of hyponatremia specially if it is acute, can be life threatening including confusion, seizure and, coma. (2) Abdominal pain: Abdominal exam relatively benign. Labs to include LFTs and Lipase unremarkable. ?GERD ?Gas -Continue Omeprazole 20mg po daily -Zofran PRN -Simethicone PRN (3) Hypertension: Blood pressure elevated at present -Continue Lisinopril -added lasix in lieu of hctz (4) GERD (gastroesophageal reflux disease): Chronic. -Continue Omeprazole daily (5) Tobacco abuse: +Tobacco use - 1ppd for years. -Nicoderm 21mg patch -Tobacco cessation counseling (6) Alcohol dependence: Patient reports drinking 15 beers/day, last drink yesterday afternoon. No history of withdrawal symptoms or seizures. EtOH level=0 Recommend cessation Informed of AA meetings. Will have patient discuss this further with PCP (7) Anxiety and depression: Chronic, stable -Continue Fluoxetine 20mg po daily (8) Dyslipidemia: LDL at goal -Continue Atorvastatin 10mg po daily Total Time Total Time Spent Total Time Spent (In Minutes): 32 Total Time Includes: Examination of the Patient, Discharge Planning, Medication Reconciliation and Communication With Other Providers Discharge Plan Discharge Items Patient Disposition: Home - Self-Care Reason For Visit: HYPONATREMIA Discharge Diagnosis: Hyponatremia Discharge Goals: Decrease discomfort Activity: Resume your previous activity Non-emergency contact: Primary Care Provider Call non-emergency contact if: you have any medication questions Follow-up/Referrals: Aby Kuo CRNP [Primary Care Provider] - 11/19/18 1:45 pm (Please, follow up at [facility] [place] Office with Aby SMITH on November 19 at 1:45 pm. *The office is located at [address] [place] [address] in [place]. If you need to change this appointment, call the office at [phone].) Diet: Regular Fluids: 1500ml (6 cups) Addtl Provider Instructions: continue to limit free water intake to less than 1500 mL per day start on Lasix 20 milligram p.o. daily and increase dose as needed --continue on oral salt tablet 1 grams twice a day on discharge Prescriptions: New sodium chloride 1 gram Tablet 2 g PO BID Qty: 60 RF: 0 thiamine HCl (vitamin B1) [Vitamin B-1] 100 mg Tablet 100 mg PO QAM Qty: 30 RF: 0 furosemide 20 mg tablet 20 mg PO DAILY Qty: 30 RF: 0 Continued atorvastatin 10 mg tablet 10 mg PO DAILY RF: 0 lisinopril 40 mg tablet 40 mg PO DAILY RF: 0 fluoxetine 20 mg capsule 20 mg PO DAILY RF: 0 omeprazole 20 mg capsule,delayed release(DR/EC) 20 mg PO DAILY RF: 0 Discontinued hydrochlorothiazide 12.5 mg capsule 12.5 mg PO DAILY RF: 0 Stand-Alone Forms: [facility] Discharge Orders: Discharge Order (Routine); Ordered 11/06/18 Ordered By: Omid Phillips Admission Data Admit Date/Time: 11/05/18 04:59 Attending Provider: Omid Phillips Admit Provider: Emperatriz Quinones Primary Care Provider: Aby Kuo Other Providers: Emperatriz Quinones ; Monet Templeton Service: Telemetry Other Interventions: Discharge Summary Assessment (RN) Last Done: 11/06/18 17:38 DC Date/Time DO NOT enter until pt leaves facility: 11/06/18 18:06
== END 2018-11-06 18:06 | disposition home or self-care (01) | DRG 641 ==
LOC: ED 01:21 → 2S 04:59 → SUATTDRO 04:59 → 2S 06:10

== ENCOUNTER 2021-07-06 17:46 | Inpatient (IN) ==
[2021-07-06 18:37] LABS: Basophils # (auto) 0.02 K/uL (0-0.2); Basophils % (auto) 0.1 %; Eosinophils # (auto) 0.03 K/uL (0-0.5); Eosinophils % (auto) 0.2 %; Hematocrit (blood only) 39.1 % (37-47); Hemoglobin 13.4 g/dL (12.0-16.0); Immature Granulocytes # (auto) 0.06 K/uL (0.00-0.02); Immature Granulocytes % (auto) 0.4 %; Lymphocytes # (auto) 1.84 K/uL (1.2-3.4); Lymphocytes % (auto) 13.3 %; Mean Corpuscular Hemoglobin 31.7 pg (25-34); Mean Corpuscular Hgb Conc 34.3 g/dL (32-36); Mean Corpuscular Volume 92.4 fL (80-100); Monocytes # (auto) 1.11 K/uL (0.11-0.59); Neutrophils # (auto) 10.77 K/uL (1.4-6.5); Platelet Count 284 K/uL (130-400); RDW Coefficient of Variation 13.1 % (11.5-14.5); RDW Standard Deviation 44.1 fL (36.4-46.3); Red Blood Count 4.23 M/uL (4.2-5.4); White Blood Count 13.83 K/uL (4.8-10.8)
[2021-07-06 18:48] LABS: Partial Thromboplastin Ratio 1.1; Partial Thromboplastin Time 29.3 Seconds (21.0-31.0); Prothrombin Time 11.1 Seconds (9.0-12.0)
--- NOTE | 2021-07-06 18:57 | XRay Report ---
XR chest 1V portable CLINICAL HISTORY: SOB. COMPARISON STUDY: 11/05/2018 TECHNIQUE: 1 view of the chest FINDINGS: Single frontal view of the chest demonstrates the cardiomediastinal silhouette to be within normal li mits. The lungs are clear of alveolar opacities. There is no evidence for pleural effusion. There is no evidence for vascular congestion. There is no acute osseous pathology. IMPRESSION: 1. No acute cardiopulmonary disease. ACT 112: Negative or not required by law. Electronically signed by: Juan Rodriguez M.D. 07/06/2021 6:56 PM
[2021-07-06 19:02] LABS: Alanine Aminotransferase 15 U/L (7-52); Albumin Globulin Ratio 1.3 (0.9-2); Albumin Level 4.3 gm/dl (3.4-5.0); Alkaline Phosphatase 103 U/L (34-104); Anion Gap 8 (3-11); Aspartate Aminotransferase 17 U/L (13-39); Bilirubin,Total 0.4 mg/dl (0.2-1.0); Blood Urea Nitrogen 4 mg/dl (6-23); Calcium 9.9 mg/dl (8.5-10.1); Carbon Dioxide 30 mmol/L (21-32); Chloride 95 mmol/L (98-107); Est GFR (Non-African American) 104.4 ml/min; Globulin 3.4 gm/dl (2.5-4.0); Glucose 125 mg/dl (70-99(Fasting)); Magnesium 1.9 mg/dl (1.7-2.4); Potassium 3.5 mmol/L (3.5-5.1); Sodium 133 mmol/L (136-145); Total Protein 7.7 gm/dl (6.0-8.3); Troponin I < 0.03 ng/ml (0-0.04)
[2021-07-06] MEDS ORDERED: dexAMETHasone**PF** 10 MG/ML VIAL IV ONE (19:02)
[2021-07-06] MEDS ORDERED: ALBUT/IPRATROP 3MG/0.5MG NEB 3 ML VIAL NEB ONE (19:02)
--- NOTE | 2021-07-06 19:09 | Emergency Department Note ---
Impression & Plan COPD with acute exacerbation, Hypoxia ED Provider Note Name: CLAUDY KAUR Age: 56 Sex: F Arrives Via: Ambulance Informant: Patient, EMS ED Provider: Obey Sommer MD Chief Complaint: Shortness of breath Impression: As per impressions above Medical Decision Makin-year-old female with extensive smoking history arrives with worsening shortness of breath over the last week to point where she is now hypoxic on room air requiring 4 L nasal cannula to stay oxygenated. On exam her lungs are quite tight and she has diffuse wheezing. She was given an hour-long nebulizer which did improve her work of breathing though still diffuse wheezing and requiring nasal cannula O2. She does not have a history of PE and her concerning findings as her COPD exacerbation much more likely cause. There is no clear evidence of infectious etiology and Covid/flu are currently negative. Given the COPD aspect of smoking I do feel that antibiotics are reasonable and she was started on doxycycline I will note that blood cultures were obtained. Her lactate is unr emarkable and she is not septic or toxic appearing. Symptoms and findings are not consistent with acute CHF exacerbation nor ACS at this time. It was given Decadron for steroid coverage and hospitalist was consulted for further management. Prior Medical Record and Triage/Nursing Notes reviewed by Me Additional history obtained from chart Differentials:Reactive airway disease, pneumonia, pneumothorax, COPD, CHF, infections, cardiac ischemia, pulmonary embolism, musculoskeletal, gastrointestinal, as well as other pathologies. Vital Signs: reviewed and remarkable for hypoxia on room air Interventions: Duoneb 1 hr, decadron 10mg iv, doxycycline 100mg Labs:Reviewed and remarkable for no significant abnormalities Imaging:X ray results are stated below per my interpretation: Chest: 1 view: No infiltrate, no effusion, normal cardiac border. EKG:Per My Interpretation: Indication Chest Pain: NSR 82 bpm, qtc 448. No Ectopy. No Ischemia. Compared to EKG 11/05/18, no significant changes. Cardiac/Tele Monitoring: Cardiac Monitoring: An Order was placed for continuous cardiac monitoring. The monitor shows a rate of [] with a [normal sinus] rhythm. Consults:Dr Jarad JENNINGS Hospitalist Plan: Disposition:Hospitalization. Condition: Fair History of Present Illness:-year-old female arrives for evaluation of shortness of breath. Patient notes she has been ill for about 1 week. Symptoms have been gradually worsening over the last few days. Her only known contact with her niece saying the day before she started feeling sick. Patient states that she has a productive cough, chills, weakness. She notes she cannot breathe or with exertion the last few days. Worse with exertion and better with rest. She was given a nebulizer by EMS in route and was feeling better with this. She is requiring 4 L of nasal cannula O2 to maintain her oxygen saturations. She has never had to use oxygen but long-term smoker since eighth grade smoking a little over a pack a day. She has no history of diagnosed COPD but she does note that her lungs probably are good due to the smoking. Patient denies any current chest pain, syncope, back pain, headache, fevers, abdominal pain, back pain, urinary/bowel symptoms, leg swelling, calf pain, black/bloody stools, bleeding or other symptoms. Been on no recent antibiotics. No taking at home Covid test yesterday that was negative. ROS: See above HPI for pertinent positives & negatives. A total of 10 systems reviewed and were otherwise negative. Past Medical History:Hypertension, tobacco abuse, anxiety depression, previous alcohol abuse, dyslipidemia Past Surgical History:See Below Family History:See Below Social History:See Below Home Medications:See Below Allergies:nkda Vitals:Blood Pressure: 177/98, Pulse 83, RR 22, T 36.8C, O2 91% on 4L NC Physical Exam: GENERAL: Patient is unwell appearing and in moderate distress. EYES: No scleral icterus, unremarkable pupils. ENT: Mucous membranes moist, no nasal congestion. NECK: No masses appreciated, nomeningismus, trachea is midline. RESPIRATORY: Mild dyspnea, diffuse wheezing and junky lung sounds throughout. CARDIOVASCULAR: Regular rate and rhythm.No murmurs, rubs, gallops appreciated. GASTROINTESTINAL: Abdomen soft, non-tender, no peritonitis.Bowel sounds positive.No masses appreciated. BACK: No midline tenderness, no CVA tenderness EXTREMITIES: Normal motion all extremities, no cyanosis, no edema. NEUROLOGIC: Alert and oriented, no acute motor or sensory deficits, no focal weakness, cranial nerves grossly intact. SKIN: No rash, no jaundice, no diaphoresis. PSYCH: Appropriate GCS: 15 ED Course: Times/Reassessments: Is improved with DuoNeb however still diffuse wheezing and hypoxia thus requiring hospitalization. Obey Sommer MD Past Med/Surg History Medical History (Updated 07/07/21 @ 15:52 by Obey Sommer MD) Alcohol abuse Anxiety and depression Fatty liver GERD (gastroesophageal reflux disease) History of anesthesia reaction difficulty waking Hyperlipidemia Hypertension Hyponatremia Surgical History History of appendectomy History of open reduction and internal fixation (ORIF) procedure left ankle--hardware in place History of tooth extraction History of tubal ligation History of wisdom tooth extraction Family History Mother Family history of diabetes mellitus Sister Hypertension Grandfather (Maternal) Heart disease Grandmother (Maternal) Family history of diabetes mellitus Grandmother (Paternal) Family history of diabetes mellitus Other Coronary heart disease No family history of adverse response to anesthesia Social History Smoking Status: Former smoker Tobacco Type: Cigarettes Age Started Using Tobacco: 17; packs per day: 1; Years Smoked: 36; Cigarettes Per Day: 20 a day; Smoking End Date: 1 week ago; Second Hand Exposure: No; Do You Dip or Chew Tobacco: No; Tobacco Cessation Education Requested by Patient: No Hx Alcohol Use: No Hx Substance Use: No Preferred Language: Danish Communication Ability: Effective 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 Beliefs That Will Affect Care: None marital status: Current Living Situation: Significant Other Current Living Situation Comment: with partner current occupational status: employed Other Information That Helps Us Care for You: No Feels Safe at Home: Yes Safety Concerns: Feels Safe At This Time Dental Care, Regularly: No Physical Activity Frequency: Does not Exercise Assistive Devices: None Assistive Devices Comment: not with Pt Allergies Allergies Allergy/AdvReac Type Severity Reaction Status Date / Time No Known Allergies Allergy Unknown Verified 07/06/21 19:50 Home Meds Home Medications Medication Instructions Recorded Confirmed lisinopril 40 mg tablet 40 mg PO DAILY 07/06/21 07/06/21 Previous Rx's Medication Instructions Recorded thiamine HCl (vitamin B1) 100 mg 100 mg PO QAM #30 tab 11/19/18 tablet (Vitamin B-1) atorvastatin 10 mg tablet 10 mg PO HS #90 tab 12/18/20 fluoxetine 40 mg capsule 40 mg PO DAILY #90 cap 01/30/21 omeprazole 20 mg capsule,delayed 20 mg PO QAM #90 cap 01/30/21 release furosemide 20 mg tablet 20 mg PO QAM #90 tab 03/19/21 Results & Data (ED) Vital Signs Vital Signs - 24 hr 07/06/21 17:55 07/06/21 18:30 07/06/21 19:04 Temperature 36.8 C Temperature Source Oral Pulse Rate 89 89 Pulse Rate [Finger] 83 Pulse Rate from SpO2 Sensor Respiratory Rate 20 20 22 Respiratory Effort / Characteristics Non-Labored Spontaneous Blood Pressure 218/109 H Blood Pressure [Right Arm] 177/98 H Blood Pressure Mean 145 Blood Pressure Mean [Right Arm] 124 Pulse Oximetry 89 L 91 Oxygen Delivery Method Room Air Room Air Nasal Cannula Oxygen Flow Rate 4 4 4 Sepsis Recent Fever Within 48 Hours No Sepsis New/Unexplained Change in Mental Status N/A Sepsis Action Taken by Nursing No Action Required 07/06/21 19:12 07/06/21 19:46 07/06/21 20:30 Temperature Temperature Source Pulse Rate Pulse Rate [Finger] 80 Pulse Rate from SpO2 Sensor 89 Respiratory Rate 22 Respiratory Effort / Characteristics SOB on Exertion Non-Labored Short of Breath Blood Pressure Blood Pressure [Right Arm] Blood Pressure Mean Blood Pressure Mean [Right Arm] Pulse Oximetry 91 96 100 Oxygen Delivery Method Nasal Cannula Nasal Cannula Nebulizer Oxygen Flow Rate 4 4 Sepsis Recent Fever Within 48 Hours Sepsis New/Unexplained Change in Mental Status Sepsis Action Taken by Nursing 07/06/21 21:04 Temperature Temperature Source Pulse Rate Pulse Rate [Finger] 100 H Pulse Rate from SpO2 Sensor Respiratory Rate 24 Respiratory Effort / Characteristics Blood Pressure Blood Pressure [Right Arm] 179/107 H Blood Pressure Mean Blood Pressure Mean [Right Arm] 131 Pulse Oximetry 98 Oxygen Delivery Method Nebulizer Oxygen Flow Rate Sepsis Recent Fever Within 48 Hours Sepsis New/Unexplained Change in Mental Status Sepsis Action Taken by Nursing Laboratory Data Result diagrams: 07/07/21 06:22 07/07/21 06:22 Lab Results 07/06/21 07/06/21 07/06/21 Range/Units 18:25 18:25 18:25 WBC 13.83 H (4.8-10.8) K/uL RBC 4.23 (4.2-5.4) M/uL Hgb 13.4 (12.0-16.0) g/dL Hct 39.1 (37-47) % MCV 92.4 (80-100) fL MCH 31.7 (25-34) pg MCHC 34.3 (32-36) g/dL RDW Std Deviation 44.1 (36.4-46.3) fL RDW Coeff of Nadeen 13.1 (11.5-14.5) % Plt Count 284 (130-400) K/uL MPV 9.0 (7.4-10.4) fL Immature Gran % (Auto) 0.4 % Neut % (Auto) 78.0 % Lymph % (Auto) 13.3 % Baxter % (Auto) 8.0 % Eos % (Auto) 0.2 % Baso % (Auto) 0.1 % Neut # (Auto) 10.77 H (1.4-6.5) K/uL Lymph # (Auto) 1.84 (1.2-3.4) K/uL Baxter # (Auto) 1.11 H (0.11-0.59) K/uL Eos # (Auto) 0.03 (0-0.5) K/uL Baso # (Auto) 0.02 (0-0.2) K/uL Immature Gran # (Auto) 0.06 H (0.00-0.02) K/uL PT 11.1 (9.0-12.0) Seconds INR 1.0 (0.9-1.1) APTT 29.3 (21.0-31.0) Seconds PTT Ratio 1.1 Sodium 133 L (136-145) mmol/L Potassium 3.5 (3.5-5.1) mmol/L Chloride 95 L (98-107) mmol/L Carbon Dioxide 30 (21-32) mmol/L Anion Gap 8 (3-11) BUN 4 L (6-23) mg/dl Creatinine 0.57 L (0.6-1.2) mg/dl Est Cr Clr Drug Dosing 111.0 ml/min Est GFR ( Amer) 121.0 ml/min Est GFR (Non-Af Amer) 104.4 ml/min BUN/Creatinine Ratio 7.0 L (10-20) Glucose 125 H (70-99(Fasting)) mg/dl Lactate (0.4-2.0) mmol/L Calcium 9.9 (8.5-10.1) mg/dl Magnesium 1.9 (1.7-2.4) mg/dl Total Bilirubin 0.4 (0.2-1.0) mg/dl AST 17 (13-39) U/L ALT 15 (7-52) U/L Alkaline Phosphatase 103 (34-104) U/L Troponin I < 0.03 (0-0.04) ng/ml Total Protein 7.7 (6.0-8.3) gm/dl Albumin 4.3 (3.4-5.0) gm/dl Globulin 3.4 (2.5-4.0) gm/dl Albumin/Globulin Ratio 1.3 (0.9-2) Procalcitonin (0-0.5) ng/ml Influ A Molecular Assay (Negative) Influ B Molecular Assay (Negative) SARS-CoV-2, RNA, NAAT (NEGATIVE) 07/06/21 07/06/21 07/06/21 Range/Units 19:09 19:09 19:16 WBC (4.8-10.8) K/uL RBC (4.2-5.4) M/uL Hgb (12.0-16.0) g/dL Hct (37-47) % MCV (80-100) fL MCH (25-34) pg MCHC (32-36) g/dL RDW Std Deviation (36.4-46.3) fL RDW Coeff of Nadeen (11.5-14.5) % Plt Count (130-400) K/uL MPV (7.4-10.4) fL Immature Gran % (Auto) % Neut % (Auto) % Lymph % (Auto) % Baxter % (Auto) % Eos % (Auto) % Baso % (Auto) % Neut # (Auto) (1.4-6.5) K/uL Lymph # (Auto) (1.2-3.4) K/uL Baxter # (Auto) (0.11-0.59) K/uL Eos # (Auto) (0-0.5) K/uL Baso # (Auto) (0-0.2) K/uL Immature Gran # (Auto) (0.00-0.02) K/uL PT (9.0-12.0) Seconds INR (0.9-1.1) APTT (21.0-31.0) Seconds PTT Ratio Sodium (136-145) mmol/L Potassium (3.5-5.1) mmol/L Chloride (98-107) mmol/L Carbon Dioxide (21-32) mmol/L Anion Gap (3-11) BUN (6-23) mg/dl Creatinine (0.6-1.2) mg/dl Est Cr Clr Drug Dosing ml/min Est GFR ( Amer) ml/min Est GFR (Non-Af Amer) ml/min BUN/Creatinine Ratio (10-20) Glucose (70-99(Fasting)) mg/dl Lactate 1.1 (0.4-2.0) mmol/L Calcium (8.5-10.1) mg/dl Magnesium (1.7-2.4) mg/dl Total Bilirubin (0.2-1.0) mg/dl AST (13-39) U/L ALT (7-52) U/L Alkaline Phosphatase (34-104) U/L Troponin I (0-0.04) ng/ml Total Protein (6.0-8.3) gm/dl Albumin (3.4-5.0) gm/dl Globulin (2.5-4.0) gm/dl Albumin/Globulin Ratio (0.9-2) Procalcitonin (0-0.5) ng/ml Influ A Molecular Assay Negative (Negative) Influ B Molecular Assay Negative (Negative) SARS-CoV-2, RNA, NAAT NEGATIVE (NEGATIVE) 07/06/21 Range/Units 19:16 WBC (4.8-10.8) K/uL RBC (4.2-5.4) M/uL Hgb (12.0-16.0) g/dL Hct (37-47) % MCV (80-100) fL MCH (25-34) pg MCHC (32-36) g/dL RDW Std Deviation (36.4-46.3) fL RDW Coeff of Nadeen (11.5-14.5) % Plt Count (130-400) K/uL MPV (7.4-10.4) fL Immature Gran % (Auto) % Neut % (Auto) % Lymph % (Auto) % Baxter % (Auto) % Eos % (Auto) % Baso % (Auto) % Neut # (Auto) (1.4-6.5) K/uL Lymph # (Auto) (1.2-3.4) K/uL Baxter # (Auto) (0.11-0.59) K/uL Eos # (Auto) (0-0.5) K/uL Baso # (Auto) (0-0.2) K/uL Immature Gran # (Auto) (0.00-0.02) K/uL PT (9.0-12.0) Seconds INR (0.9-1.1) APTT (21.0-31.0) Seconds PTT Ratio Sodium (136-145) mmol/L Potassium (3.5-5.1) mmol/L Chloride (98-107) mmol/L Carbon Dioxide (21-32) mmol/L Anion Gap (3-11) BUN (6-23) mg/dl Creatinine (0.6-1.2) mg/dl Est Cr Clr Drug Dosing ml/min Est GFR ( Amer) ml/min Est GFR (Non-Af Amer) ml/min BUN/Creatinine Ratio (10-20) Glucose (70-99(Fasting)) mg/dl Lactate (0.4-2.0) mmol/L Calcium (8.5-10.1) mg/dl Magnesium (1.7-2.4) mg/dl Total Bilirubin (0.2-1.0) mg/dl AST (13-39) U/L ALT (7-52) U/L Alkaline Phosphatase (34-104) U/L Troponin I (0-0.04) ng/ml Total Protein (6.0-8.3) gm/dl Albumin (3.4-5.0) gm/dl Globulin (2.5-4.0) gm/dl Albumin/Globulin Ratio (0.9-2) Procalcitonin 0.15 (0-0.5) ng/ml Influ A Molecular Assay (Negative) Influ B Molecular Assay (Negative) SARS-CoV-2, RNA, NAAT (NEGATIVE) Administered Medications Albuterol (Albut/Ipratrop 3mg/0.5mg Neb 3 Ml Vial) 3 ml INH Q6R BRAYDON Stop: 08/06/21 00:59 Last Admin: 07/07/21 13:38 Dose: 3 ml Documented by: [id number] Admin: 07/07/21 07:31 Dose: 3 ml Documented by: [id number] Admin: 07/07/21 00:04 Dose: 3 ml Documented by: [id number] Doxycycline Hyclate (Doxycycline Hyclate 100 Mg Cap) 100 mg PO BID BRAYDON Stop: 07/12/21 08:59 Last Admin: 07/07/21 09:17 Dose: 100 mg Documented by: [id number] Enoxaparin Sodium (Enoxaparin Inj 40 Mg/0.4 Ml Syr) 40 mg SQ Q24H BRAYDON Stop: 08/06/21 08:59 Last Admin: 07/07/21 09:17 Dose: 40 mg Documented by: [id number] Fluoxetine HCl (Fluoxetine Hcl 20 Mg Cap) 40 mg PO DAILY BRAYDON Stop: 08/06/21 08:59 Last Admin: 07/07/21 09:17 Dose: 40 mg Documented by: [id number] Furosemide (Furosemide 20 Mg Tab) 20 mg PO QAM BRAYDON Stop: 08/06/21 08:59 Last Admin: 07/07/21 09:17 Dose: 20 mg Documented by: [id number] Guaifenesin (Guaifenesin 600 Mg Tabcr) 1,200 mg PO BID BRAYDON Stop: 08/06/21 08:59 Last Admin: 07/07/21 09:17 Dose: 1,200 mg Documented by: [id number] Methylprednisolone 40 mg/ (Syringe) 0.64 mls @ 1.5 mls/min IV Q8H BRAYDON Stop: 08/06/21 00:00 Last Admin: 07/07/21 09:16 Dose: 1.5 mls/min Documented by: [id number] Admin: 07/07/21 00:09 Dose: 1.5 mls/min Documented by: [id number] Lisinopril (Lisinopril 40 Mg Tab) 40 mg PO DAILY BRAYDON Stop: 08/06/21 08:59 Last Admin: 07/07/21 09:17 Dose: 40 mg Documented by: [id number] Pantoprazole Sodium (Pantoprazole 40 Mg Tab) 40 mg PO QAM BRAYDON Stop: 08/06/21 08:59 Last Admin: 07/07/21 09:16 Dose: 40 mg Documented by: [id number] Thiamine HCl (Thiamine Hcl 100 Mg Tab) 100 mg PO QAM BRAYDON Stop: 08/06/21 08:59 Last Admin: 07/07/21 09:17 Dose: 100 mg Documented by: [id number] Discontinued Medications Albuterol (Albut/Ipratrop 3mg/0.5mg Neb 3 Ml Vial) 12 ml NEB ONE ONE; Protocol Stop: 07/06/21 19:03 Last Admin: 07/06/21 19:46 Dose: 12 ml Documented by: [id number] Dexamethasone Sodium Phosphate (DexamethasonePf 10 Mg/Ml Vial) 10 mg IV NOW ONE Stop: 07/06/21 19:03 Last Admin: 07/06/21 19:42 Dose: 10 mg Documented by: [id number] Dextromethorphan Polymer Complex (Dextromethorphan Polymr Complx 30 Mg/5 Ml Udp) 30 mg PO ONE ONE Stop: 07/07/21 02:38 Last Admin: 07/07/21 02:47 Dose: 30 mg Documented by: [id number] Doxycycline Hyclate 100 mg/ (Dextrose) 110 mls @ 50 mls/hr IV NOW STA Stop: 07/06/21 22:24 Last Infusion: 07/06/21 23:21 Dose: 0 mls/hr Documented by: [id number] Admin: 07/06/21 21:05 Dose: 50 mls/hr Documented by: [id number] Methylprednisolone 40 mg/ (Syringe) 0.64 mls @ 1.5 mls/min IV Q12H COUNT INCLUDES THE [facility] Stop: 08/05/21 21:44 Last Admin: 07/07/21 00:05 Dose: Not Given Documented by: [id number] Imaging Data Radiologist's Impression: Chest X-Ray 07/06/21 18:30 XR chest 1V portable CLINICAL HISTORY: SOB. COMPARISON STUDY: 11/05/2018 TECHNIQUE: 1 view of the chest FINDINGS: Single frontal view of the chest demonstrates the cardiomediastinal silhouette to be within normal limits. The lungs are clear of alveolar opacities. There is no evidence for pleural effusion. There is no evidence for vascular congestion. There is no acute osseous pathology. IMPRESSION: 1. No acute cardiopulmonary disease. ACT 112: Negative or not required by law. Electronically signed by: Juan Rodriguez M.D. 07/06/2021 6:56 PM Discharge Plan Visit Data Chief Complaint: Shortness of Breath/Dyspnea Stated Complaint: SOB ED Provider: Obey Sommer Discharge Problem: COPD with acute exacerbation, Hypoxia Patient Disposition: Admitted As Inpatient Discharge Instructions Interventions: ED Discharge Assessment Last Done: 07/06/21 22:10
[2021-07-06 19:44] LABS: Influenza A virus by PCR Negative (Negative); Influenza B virus by PCR Negative (Negative)
[2021-07-06] MEDS ORDERED: DOXYCYCLINE HYCLATE 100 MG in DEXTROSE 5% 100 ML IV STA (20:13)
[2021-07-06] MEDS ORDERED: ALBUTEROL 0.083% NEBU SOLN 3 ML VIAL NEB PRN ×2 (21:25→21:46)
--- NOTE | 2021-07-06 21:26 | History & Physical Report ---
Date of Service July 06, 2021 Assessment & Plan (1) Acute respiratory failure with hypoxia: Plan: -O2 initially in 80s on room air upon evaluation, sats now in 90s on 4 L. This is most likely a COPD exacerbation, patient does not carry diagnosis however she has smoked a pack a day since the eighth grade and reports a chronic cough that has been productive of sputum for years now. Her symptoms improved after receiving an albuterol treatment and 10 mg IV dexamethasone in ED. Pneumonia less likely, she does have an elevated WBC and has had chills at home, however CXR showed no acute process and pro-Thong is negative DVT/PE unlikely as patient has gradually developed her shortness of breath over a 1 week. In the setting of increased sputum production and chills. There may possibly be a component of heart failure, she is on Lasix 20 mg daily and reports orthopnea and PND for the past week a BNP was ordered. -DuoNebs every 6, albuterol every 2 as needed. -Started on doxycycline in ED, will continue this 100 mg p.o. twice daily. -Next 1200 mg twice daily. -Medrol 40 mg IV every 8 for the first day. Can consider taper to p.o. prednisone at a later date. -Sputum culture ordered, pending. -On 4 L NC, goal SaO2 around 92%. -Trend CBC, BMP in a.m. (2) Hypertension: Plan: -Hypertensive in ED, did not take lisinopril or Lasix today. -Continue lisinopril and Lasix (3) GERD (gastroesophageal reflux disease): Plan: -Continue PPI. (4) Tobacco abuse: Plan: -Has smoked 1 pack a day since eighth grade, however she states she quit 1 week ago when shortness of breath became an issue. Does not think she wants a nicotine patch for now. Can consider ordering in the future if nicotine cravings becomes an issue or patient requests one. (5) Alcohol dependence: Plan: -In remission, continue thiamine supplement. (6) Dyslipidemia: Plan: Continue atorvastatin 10 mg. Plan: -Admit to MedSurg. -SCDs and Lovenox for DVT PPx. -Full code. History of Present Illness Chief Complaint: Shortness of breath Primary Care Provider: SARAH Pace Patient is a 56-year-old female with past medical history of HTN, GERD, depression, alcohol abuse, and tobacco abuse who presents today with shortness of breath. Patient states she noticed last Friday, (1 week ago) that she was becoming more short of breath with activities that she previously had been able to tolerate. She states she does not become short of breath often, occasionally will use her partner's albuterol inhaler which has alleviated any instances of shortness of breath in the past. In addition to this, she notes that she has a chronic productive cough that has worsened. Sputum has been green, without blood, she states she has been coughing up more sputum than typically. She is woken up several times middle of the night over the past week short of breath, has been propping herself up with several pillows or sleeping in her recliner to the shortness of breath when lying flat. She has also had chills for the past week, but no fever recorded. she denies sudden increase in weight, myalgias, fatigue, chest pain, palpitations, unilateral leg swelling, calf pain, lower extremity edema, nausea, vomiting, abdominal pain, constipation, diarrhea, increased urinary frequency or hesitancy, dysuria, or hematuria. Denies past medical history of DVT or PE, does not have a diagnosis of COPD, however she has smoked about 1 pack a day since eighth grade. Allergies Allergy/AdvReac Type Severity Reaction Status Date / Time No Known Allergies Allergy Unknown Verified 07/06/21 19:50 Home Medications Medication Instructions Recorded Confirmed Type thiamine HCl (vitamin B1) 100 mg 100 mg PO QAM #30 tab 11/19/18 07/06/21 Rx tablet (Vitamin B-1) atorvastatin 10 mg tablet 10 mg PO HS #90 tab 12/18/20 07/06/21 Rx fluoxetine 40 mg capsule 40 mg PO DAILY #90 cap 01/30/21 07/06/21 Rx omeprazole 20 mg capsule,delayed 20 mg PO QAM #90 cap 01/30/21 07/06/21 Rx release furosemide 20 mg tablet 20 mg PO QAM #90 tab 03/19/21 07/06/21 Rx lisinopril 40 mg tablet 40 mg PO DAILY 07/06/21 07/06/21 History Past Med/Surg History Medical History (Updated 07/07/21 @ 15:52 by Obey Sommer MD) Alcohol abuse Anxiety and depression Fatty liver GERD (gastroesophageal reflux disease) History of anesthesia reaction difficulty waking Hyperlipidemia Hypertension Hyponatremia Surgical History History of appendectomy History of open reduction and internal fixation (ORIF) procedure left ankle--hardware in place History of tooth extraction History of tubal ligation History of wisdom tooth extraction Family History Mother Family history of diabetes mellitus Sister Hypertension Grandfather (Maternal) Heart disease Grandmother (Maternal) Family history of diabetes mellitus Grandmother (Paternal) Family history of diabetes mellitus Other Coronary heart disease No family history of adverse response to anesthesia Social History Smoking Status: Former smoker Tobacco Type: Cigarettes Age Started Using Tobacco: 17; packs per day: 1; Years Smoked: 36; Cigarettes Per Day: 20 a day; Smoking End Date: 1 week ago; Second Hand Exposure: No; Do You Dip or Chew Tobacco: No; Tobacco Cessation Education Requested by Patient: No Hx Alcohol Use: No Hx Substance Use: No Preferred Language: Gambian Communication Ability: Effective 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 Beliefs That Will Affect Care: None marital status: Current Living Situation: Significant Other Current Living Situation Comment: with partner current occupational status: employed Other Information That Helps Us Care for You: No Feels Safe at Home: Yes Safety Concerns: Feels Safe At This Time Dental Care, Regularly: No Physical Activity Frequency: Does not Exercise Assistive Devices: None Assistive Devices Comment: not with Pt Review of Systems Review of Systems: Review of systems: Constitutional: Reports chills; no fever, sweats or recent, sudden weight gain Eyes: No diplopia, no worsening or blurred vision ENT: normal hearing, no trouble swallowing Respiratory: Patient has a chronic cough which has worsened in severity and increased sputum production, reports shortness of breath with activity since last Friday alleviated with rest Cardiovascular: No chest pain, tightness or palpitations Abdomen: No pain, nausea, vomiting, diarrhea or constipation Musculoskeletal: No joint pain, calf pain, swelling Neurologic: No weakness, numbness/tingling, or balance problems Psychiatric: No anxiety or depression Skin: No rash or itch Physical Exam Physical Exam: General: awake, alert, no apparent distress; patient is on 3 L nasal cannula, has to sit up at a 90 degree angle in order to breathe properly, however is able to converse it with me. Head: Normocephalic, atraumatic ENT: PERRL, EOMI, no pharyngeal exudate, mucous membranes moist Chest: Expiratory wheezes heard throughout Cardiac: Regular rate and rhythm, no murmur, no JVD, normal peripheral pulses, good capillary refill Abdominal: NABS x 4 quadrants, soft, nontender to palpation, no rebound, guarding or tenderness Extremities: Normal inspection, no peripheral edema or erythema, calfs nontender to palpation Psych: Normal mood and affect Neuro: AAO x 3, strength intact bilaterally and rated 5/5, no motor deficits, speech is clear, no peripheral sensory deficits Skin: no rash or erythema Results & Data Results & Data ([facility]) Vital Signs (Past 12 Hours) Vital Signs Temp Pulse Pulse Resp BP BP Pulse Ox 07/06/21 21:04 100 H 24 179/107 H 98 07/06/21 20:30 100 07/06/21 19:46 80 22 96 07/06/21 19:12 91 07/06/21 19:04 83 22 177/98 H 91 07/06/21 18:30 89 20 07/06/21 17:55 36.8 C 89 20 218/109 H 89 L Laboratory Results Abnormal lab results 07/06/21 07/06/21 Range/Units 18:25 18:25 WBC 13.83 H (4.8-10.8) K/uL Neut # (Auto) 10.77 H (1.4-6.5) K/uL Robertson # (Auto) 1.11 H (0.11-0.59) K/uL Immature Gran # (Auto) 0.06 H (0.00-0.02) K/uL Sodium 133 L (136-145) mmol/L Chloride 95 L (98-107) mmol/L BUN 4 L (6-23) mg/dl Creatinine 0.57 L (0.6-1.2) mg/dl BUN/Creatinine Ratio 7.0 L (10-20) Glucose 125 H (70-99(Fasting)) mg/dl Diagnostic Findings Chest X-Ray 07/06/21 18:30 XR chest 1V portable CLINICAL HISTORY: SOB. COMPARISON STUDY: 11/05/2018 TECHNIQUE: 1 view of the chest FINDINGS: Single frontal view of the chest demonstrates the cardiomediastinal silhouette to be within normal limits. The lungs are clear of alveolar opacities. There is no evidence for pleural effusion. There is no evidence for vascular congestion. There is no acute osseous pathology. IMPRESSION: 1. No acute cardiopulmonary disease. ACT 112: Negative or not required by law. Electronically signed by: Juan Rodriguez M.D. 07/06/2021 6:56 PM ECG Additional Comments: Poor data quality, interpretation may be adversely affected Normal sinus rhythm Nonspecific T wave abnormality Abnormal ECG When compared with ECG of 05-NOV-2018 01:48, No significant change was found Code Status & VTE Plan Code Status full code VTE Prophylaxis Plan VTE Prophylaxis will be ordered: Yes Supervising Physician Co-Signing Physician Notes Attending addendum: I have physically seen this patient, have supervised the MITCHEL's medical activities and agree with the H&P unless as otherwise noted. Assessment and Plan: Acute respiratory failure with hypoxia- Pulse ox 89% on room air, will titrate oxygen for pulse ox 92% Given dexamethasone 10 mg IV, DuoNeb treatment and doxycycline 100 mg IV in the ED Placed on methylprednisolone 40 mg IV every 12 hours, DuoNebs 4 times daily and every 2 hours as needed, and oral doxycycline 100 mg p.o. twice daily Sputum Gram stain and culture Follow serial laboratories Tobacco cessation counseling Remaining orders and notations as noted PG Care Time/CCT Total # of Minutes Spent Total Time Spent with Patient: Total time spent is greater than 50% in coordination of care (as documented) at patient's floor/unit and/or counseling patient: Coding Level of Care Code 98451 Initial Inpt Care Lvl 3 Diagnoses Acute respiratory failure with hypoxia J96.01 Hypertension I10 Hypertension type: essential hypertension GERD (gastroesophageal reflux disease) K21.9 Esophagitis presence: esophagitis presence not specified Tobacco abuse Z72.0 Alcohol dependence F10.20 Substance use status: uncomplicated Dyslipidemia E78.5 (1) Alcohol dependence Substance use status: uncomplicated Qualified Code(s): F10.20 - Alcohol dependence, uncomplicated (2) GERD (gastroesophageal reflux disease) Esophagitis presence: esophagitis presence not specified Qualified Code(s): K21.9 - Gastro-esophageal reflux disease without esophagitis (3) Hypertension Hypertension type: essential hypertension Qualified Code(s): I10 - Essential (primary) hypertension
[2021-07-06] MEDS ORDERED: methylPREDNISolone 40 MG in SYRINGE 0 ML IV SCH (21:45)
[2021-07-06] MEDS ORDERED: POLYETHYLENE (MIRALAX) 17 GM PACK PO PRN (22:24)
[2021-07-06] MEDS ORDERED: ONDANSETRON INJ 2 MG/ML 2 ML VIAL IV PRN (22:24)
[2021-07-07] MEDS: ALBUT/IPRATROP 3MG/0.5MG NEB 3 ML VIAL INH SCH ×4 (00:04→19:06)
[2021-07-07] MEDS: methylPREDNISolone 40 MG in SYRINGE 0 ML IV SCH ×3 (00:09→17:07)
[2021-07-07] MEDS ORDERED: DEXTROMETHORPHAN POLYMR COMPLX 30 MG/5 ML UDP PO ONE (02:37)
[2021-07-07 07:14] LABS: Basophils # (auto) 0.01 K/uL (0-0.2); Basophils % (auto) 0.1 %; Hematocrit (blood only) 36.2 % (37-47); Hemoglobin 12.3 g/dL (12.0-16.0); Immature Granulocytes % (auto) 0.7 %; Lymphocytes # (auto) 0.88 K/uL (1.2-3.4); Lymphocytes % (auto) 6.3 %; Mean Corpuscular Hemoglobin 31.3 pg (25-34); Mean Corpuscular Volume 92.1 fL (80-100); Mean Platelet Volume 9.7 fL (7.4-10.4); Monocytes # (auto) 0.17 K/uL (0.11-0.59); Monocytes % (auto) 1.2 %; Neutrophils # (auto) 12.73 K/uL (1.4-6.5); Neutrophils % (auto) 91.7 %; Platelet Count 298 K/uL (130-400); RDW Coefficient of Variation 13.1 % (11.5-14.5); RDW Standard Deviation 44.2 fL (36.4-46.3); Red Blood Count 3.93 M/uL (4.2-5.4); White Blood Count 13.89 K/uL (4.8-10.8)
[2021-07-07 07:33] LABS: BUN Creatinine Ratio 11.4 (10-20); Calcium 8.8 mg/dl (8.5-10.1); Creatinine Clr Calc Pharmacy 156.5 ml/min; Est GFR (African American) 131.7 ml/min; Est GFR (Non-African American) 113.6 ml/min; Potassium 3.8 mmol/L (3.5-5.1)
[2021-07-07] MEDS: PANTOprazole 40 MG TAB PO SCH (09:16)
[2021-07-07] MEDS: FUROSEMIDE 20 MG TAB PO SCH (09:17)
[2021-07-07] MEDS: DOXYCYCLINE HYCLATE 100 MG CAP PO SCH ×2 (09:17→20:37)
[2021-07-07] MEDS: THIAMINE HCL 100 MG TAB PO SCH (09:17)
[2021-07-07] MEDS: ENOXAPARIN INJ 40 MG/0.4 ML SYR SQ SCH (09:17)
[2021-07-07] MEDS: FLUoxetine HCL 20 MG CAP PO SCH (09:17)
[2021-07-07] MEDS: lisinopril 40 MG TAB PO SCH (09:17)
[2021-07-07] MEDS: guaiFENesin 600 MG TABCR PO SCH ×2 (09:17→20:37)
--- NOTE | 2021-07-07 12:21 | Hospitalist Progress Note ---
Date of Service July 07, 2021 Assessment & Plan (1) Acute respiratory failure with hypoxia: Plan: -O2 initially in 80s on room air upon evaluation, sats now in 90s on 4 L likely secondary to AECOPD--not formally diagnosed but highly suspected d/t long- standing h/o tobacco use. ?CHF component given pt reporting +orthopnea and PND. -DuoNebs every 6, albuterol every 2 as needed. -Started on doxycycline in ED, will continue this 100 mg p.o. twice daily. -Mucinex 1200 mg twice daily. -Medrol 40 mg IV every 8 hours. Will eventually transition to PO Prednisone to complete taper upon d/c. -Sputum culture ordered, pending. -Initially on 4L supplemental O2, weaned down to 3L at present. -Given AECOPD, goal pulse ox 88-92%, wean O2 as able to achieve target pulse ox (2) Hypertension: Plan: -Hypertensive in ED, did not take lisinopril or Lasix today. -Continue lisinopril and Lasix -- elevated this AM at 191/92 prior to med administration (3) GERD (gastroesophageal reflux disease): Plan: -Continue PPI. (4) Tobacco abuse: Plan: -Has smoked 1 pack a day since eighth grade, however she states she quit 1 week ago when shortness of breath became an issue. -Declines a nicotine patch for now. Can consider ordering in the future if nicotine cravings becomes an issue or patient requests one. (5) Alcohol dependence: Plan: -In remission, continue thiamine supplement. (6) Dyslipidemia: Plan: Continue atorvastatin 10 mg. Plan: Continue current interventions as outlined above Wean O2, obtain CT chest w/o contrast to differentiate if some mild CHF could be contributing to her sx, seems unlikely given her rather low BNP of 155 Await sputum culture Follow up labs in AM Will need outpatient PFTs in 6-8 weeks to confirm diagnosis of COPD Admission and Anticipated Discharge Date Admission Date: July 06, 2021 Subjective Patient seen on daily rounds this morning. She was hospitalized with AECOPD. She is currently on 3L of supplemental O2, she does not wear O2 at home, pulse ox in the mid 90s. She reports feeling much better compared to when she came in. Continues to have productive cough with green sputum. Denies wheezing. Feels less short of breath. No chest pain. Review of Systems Review of Systems: Review of systems: Constitutional: Reports chills; no fever, sweats or recent, sudden weight gain Eyes: No diplopia, no worsening or blurred vision ENT: normal hearing, no trouble swallowing Respiratory: Patient has a chronic cough which has worsened in severity and increased sputum production, reports shortness of breath with activity since last Friday alleviated with rest Cardiovascular: No chest pain, tightness or palpitations Abdomen: No pain, nausea, vomiting, diarrhea or constipation Musculoskeletal: No joint pain, calf pain, swelling Neurologic: No weakness, numbness/tingling, or balance problems Psychiatric: No anxiety or depression Skin: No rash or itch Physical Exam Physical Exam: GENERAL: 56 yo overweight WF. NAD. LUNGS: Good air exchange. Nonlabored. Few scattered mild faint end exp wheezes noted. CARDIOVASCULAR: Regular rate and rhythm. No M/G/R. No JVD. ABDOMEN: Soft, non-tender and non-distended. BS normal x 4 quad. EXTREMITIES: No edema. Non-tender. Peripheral pulses +2/4. NEUROLOGIC: A&O x3. PSYCHIATRIC: Cooperative. Appropriate mood and affect. SKIN: Warm, dry, intact. No rashes or lesions. Results & Data Results & Data ([facility]) Vital Signs (Past 12 Hours) Vital Signs Temp Pulse Resp BP Pulse Ox 07/07/21 07:52 36.5 C 86 18 191/92 H 95 07/07/21 07:31 85 18 96 Laboratory Results 07/07/21 06:22 07/07/21 06:22 PG Care Time/CCT Total # of Minutes Spent Total Time Spent with Patient: Total time spent is greater than 50% in coordination of care (as documented) at patient's floor/unit and/or counseling patient: Coding Level of Care Code 63409 Subseq Hosp Care Lvl 2 Diagnoses Acute respiratory failure with hypoxia J96.01 Hypertension I10 Hypertension type: essential hypertension GERD (gastroesophageal reflux disease) K21.9 Esophagitis presence: esophagitis presence not specified Tobacco abuse Z72.0 Alcohol dependence F10.20 Substance use status: uncomplicated Dyslipidemia E78.5 (1) Alcohol dependence Substance use status: uncomplicated Qualified Code(s): F10.20 - Alcohol dependence, uncomplicated (2) GERD (gastroesophageal reflux disease) Esophagitis presence: esophagitis presence not specified Qualified Code(s): K21.9 - Gastro-esophageal reflux disease without esophagitis (3) Hypertension Hypertension type: essential hypertension Qualified Code(s): I10 - Essential (primary) hypertension
--- NOTE | 2021-07-07 13:52 | CT Scan Report ---
CT chest diagnostic wo con CLINICAL HISTORY: dyspnea, cough, neg cxr TECHNIQUE: Multidetector row helical CT of the chest was performed. Coronal and sagittal reformations were obtained. Automated dose lowering techniques and/or adjustment according to patient size were u tilized for this exam. Comparison: Comparison is made to chest one view 07/06/2021 FINDINGS: Lungs and pleura: Tree-in-bud nodularity is seen most prominently in the right lower lobe. Bronchial wall thickening is seen. There is a 4 mm nodule in the left upper lobe (series 4 image 102) and a 3 m m nodule in the right upper lobe (image 110) Heart and pericardium: Heart size is normal. No pericardial effusion. Vessels: Unremarkable. Mediastinum and sunil: Subcentimeter lymph nodes are seen. Chest wall and lower neck: Unremarkable. Abdomen: Unremarkable. Bones: Unremarkable. IMPRESSION: Tree in bud nodularity, most prominent in the right lower lobe, likely represents infectious/inflamma tory process. No garfield consolidation. ACT 112: Negative or not required by law. Electronically signed by: Amarjit Evans M.D. 07/07/2021 1:51 PM
[2021-07-07] MEDS: ACETAMINOPHEN 325 MG TAB PO PRN (20:37)
[2021-07-07] MEDS: ATORVASTATIN 10 MG TAB PO SCH (20:37)
--- NOTE | 2021-07-07 20:45 | Billing Data ---
Date of Service July 07, 2021 Coding Level of Care Code 18092 Initial Inpt Care Lvl 3
[2021-07-07] MEDS ORDERED: KETOROLAC TROMETHAMINE 15 MG/ML VIAL IV ONE (22:21)
[2021-07-08] MEDS: methylPREDNISolone 40 MG in SYRINGE 0 ML IV SCH ×3 (00:02→17:06)
[2021-07-08] MEDS: ALBUT/IPRATROP 3MG/0.5MG NEB 3 ML VIAL INH SCH ×4 (00:16→19:21)
--- NOTE | 2021-07-08 06:14 | Electrocardiogram Report ---
Test Reason : Blood Pressure : / mmHG Vent. Rate : 082 BPM Atrial Rate : 082 BPM P-R Int : 112 ms QRS Dur : 084 ms QT Int : 384 ms P-R-T Axes : 018 083 085 degrees QTc Int : 448 ms Poor data quality, interpretation may be adversely affected Normal sinus rhythm Nonspecific T wave abnormality Abnormal ECG When compared with ECG of 05-NOV-2018 01:48, Nonspecific T wave abnormality is now Present Confirmed by Eloy Johnson ([id number]) on 07/08/2021 6:14:04 AM Referred By: REFERRED SELF Confirmed By:Eloy Johnson
[2021-07-08 06:40] LABS: Basophils # (auto) 0.01 K/uL (0-0.2); Basophils % (auto) 0.1 %; Hematocrit (blood only) 37.4 % (37-47); Hemoglobin 12.4 g/dL (12.0-16.0); Immature Granulocytes # (auto) 0.16 K/uL (0.00-0.02); Lymphocytes # (auto) 1.04 K/uL (1.2-3.4); Lymphocytes % (auto) 6.3 %; Mean Corpuscular Hemoglobin 30.8 pg (25-34); Mean Corpuscular Hgb Conc 33.2 g/dL (32-36); Mean Corpuscular Volume 92.8 fL (80-100); Mean Platelet Volume 9.8 fL (7.4-10.4); Monocytes # (auto) 0.46 K/uL (0.11-0.59); Monocytes % (auto) 2.8 %; Neutrophils # (auto) 14.75 K/uL (1.4-6.5); Neutrophils % (auto) 89.8 %; Platelet Count 322 K/uL (130-400); RDW Coefficient of Variation 13.1 % (11.5-14.5); RDW Standard Deviation 44.8 fL (36.4-46.3); Red Blood Count 4.03 M/uL (4.2-5.4); White Blood Count 16.42 K/uL (4.8-10.8)
[2021-07-08 06:53] LABS: BUN Creatinine Ratio 26.2 (10-20); Calcium 8.6 mg/dl (8.5-10.1); Creatinine Clr Calc Pharmacy 105.9 ml/min; Est GFR (African American) 115.8 ml/min; Est GFR (Non-African American) 99.9 ml/min; Potassium 4.1 mmol/L (3.5-5.1)
[2021-07-08] MEDS: THIAMINE HCL 100 MG TAB PO SCH (08:34)
[2021-07-08] MEDS: PANTOprazole 40 MG TAB PO SCH (08:34)
[2021-07-08] MEDS: ENOXAPARIN INJ 40 MG/0.4 ML SYR SQ SCH (08:34)
[2021-07-08] MEDS: lisinopril 40 MG TAB PO SCH (08:34)
[2021-07-08] MEDS: FUROSEMIDE 20 MG TAB PO SCH (08:34)
[2021-07-08] MEDS: DOXYCYCLINE HYCLATE 100 MG CAP PO SCH ×2 (08:34→20:39)
[2021-07-08] MEDS: guaiFENesin 600 MG TABCR PO SCH ×2 (08:35→20:39)
[2021-07-08] MEDS: FLUoxetine HCL 20 MG CAP PO SCH (08:35)
[2021-07-08] MEDS: ACETAMINOPHEN 325 MG TAB PO PRN ×2 (13:14→19:43)
[2021-07-08 14:45] LABS: Urine Chloride < 15 mmol/L; Urine Potassium 14.2 mmol/L; Urine Sodium < 10 mmol/L
--- NOTE | 2021-07-08 16:03 | Hospitalist Progress Note ---
Date of Service July 08, 2021 Assessment & Plan (1) Acute respiratory failure with hypoxia: Plan: -O2 initially in 80s on room air upon evaluation, sats improved to 90s on 4 L in ED. This is most likely a COPD exacerbation, patient does not carry diagnosis however she has smoked a pack a day since the eighth grade and reports a chronic cough that has been productive of sputum for years now. Her symptoms improved after receiving an albuterol treatment and 10 mg IV dexamethasone in ED. -DuoNebs scheduled every 6, albuterol every 2 as needed. -Started on doxycycline in ED, will continue this 100 mg p.o. twice daily. -Mucinex 1200 mg twice daily. -Solumedrol 40 mg IV every 8 hours--will transition to oral Prednisone in AM -Sputum culture ordered, final pending but thus far just moderate normal yuval noted -CT chest w/o contrast demonstrated some pulmonary nodules that will require outpatient f/u as well as tree-in-bud nodularity in RLL -Add Budesonide BID -Goal pulse ox 88-92% -- wean O2 as able to achieve target pulse ox -Will require o/p PFTs in 6-8 weeks to confirm suspected diagnosis of COPD (2) Hypertension: Plan: -Continue lisinopril and Lasix -Not well controlled, will add Norvasc 10mg daily, first dose now (3) GERD (gastroesophageal reflux disease): Plan: -Continue PPI. (4) Tobacco abuse: Plan: -Has smoked 1 pack a day since eighth grade, however she states she quit 1 week ago when shortness of breath became an issue. -Declines nicotine patch for now. Can consider ordering in the future if nicotine cravings becomes an issue or patient requests one. (5) Alcohol dependence: Plan: -In remission, continue thiamine supplement. -Reports that she hasn't drank any ETOH in over a week (6) Dyslipidemia: Plan: Continue atorvastatin 10 mg. Plan: Interventions as outlined above Continue weaning O2 as able -- may require O2 at d/c Noted Na of 128 this AM on labs, suspect this reflects a lab error, pt not receiving IVF, not grossly hypervolemic appearing and no evidence of PVC on chest imaging yesterday. I did order a serum and urine osmolality and urine electrolytes as she has had reported issues with her sodium levels over the years. Will repeat chem 7 in AM. Admission and Anticipated Discharge Date Admission Date: July 06, 2021 Subjective Patient seen on daily rounds this morning. She was hospitalized with AECOPD. She is currently weaned down to 1L of supplemental O2, she does not wear O2 at home, pulse ox in the low 90s. Attempted trial on room air and she desaturated to 86%. She reports feeling much better compared to when she came in. Continues to have productive cough with green sputum. Feels she is wheezing more today. Feels less short of breath. No chest pain. Has intermittent coughing spells but daughter reports this is chronic for her. Pt's significant other also smokes. Review of Systems Review of Systems: Constitutional: Reports chills; no fever, sweats or recent, sudden weight gain Eyes: No diplopia, no worsening or blurred vision ENT: normal hearing, no trouble swallowing Respiratory: Patient has a chronic cough which has worsened in severity and increased sputum production, reports shortness of breath with activity since last Friday alleviated with rest Cardiovascular: No chest pain, tightness or palpitations Abdomen: No pain, nausea, vomiting, diarrhea or constipation Musculoskeletal: No joint pain, calf pain, swelling Neurologic: No weakness, numbness/tingling, or balance problems Psychiatric: No anxiety or depression Skin: No rash or itch Physical Exam Physical Exam: GENERAL: 56 yo overweight WF. NAD. LUNGS: Good air exchange. Nonlabored. Few scattered mild faint end exp wheezes noted. CARDIOVASCULAR: Regular rate and rhythm. No M/G/R. No JVD. ABDOMEN: Soft, non-tender and non-distended. BS normal x 4 quad. EXTREMITIES: No edema. Non-tender. Peripheral pulses +2/4. NEUROLOGIC: A&O x3. PSYCHIATRIC: Cooperative. Appropriate mood and affect. SKIN: Warm, dry, intact. No rashes or lesions. Results & Data Results & Data ([facility]) Vital Signs (Past 12 Hours) Vital Signs Temp Pulse Resp BP Pulse Ox 07/08/21 14:57 36.5 C 81 18 155/97 H 93 07/08/21 13:17 88 L 07/08/21 12:09 85 20 88 L 07/08/21 08:05 86 18 94 07/08/21 07:18 36.6 C 81 18 176/107 H 92 Laboratory Results 07/08/21 05:27 07/08/21 05:[address] 07/07/21 13:06 CT chest diagnostic wo con CLINICAL HISTORY: dyspnea, cough, neg cxr TECHNIQUE: Multidetector row helical CT of the chest was performed. Coronal and sagittal reformations were obtained. Automated dose lowering techniques and/or adjustment according to patient size were utilized for this exam. Comparison: Comparison is made to chest one view 07/06/2021 FINDINGS: Lungs and pleura: Tree-in-bud nodularity is seen most prominently in the right lower lobe. Bronchial wall thickening is seen. There is a 4 mm nodule in the left upper lobe (series 4 image 102) and a 3 mm nodule in the right upper lobe (image 110) Heart and pericardium: Heart size is normal. No pericardial effusion. Vessels: Unremarkable. Mediastinum and sunil: Subcentimeter lymph nodes are seen. Chest wall and lower neck: Unremarkable. Abdomen: Unremarkable. Bones: Unremarkable. IMPRESSION: Tree in bud nodularity, most prominent in the right lower lobe, likely represents infectious/inflammatory process. No garfield consolidation. ACT 112: Negative or not required by law. Electronically signed by: Amarjit Evans M.D. 07/07/2021 1:51 PM PG Care Time/CCT Total # of Minutes Spent Total Time Spent with Patient: Total time spent is greater than 50% in coordination of care (as documented) at patient's floor/unit and/or counseling patient: Coding Level of Care Code 31525 Subseq Hosp Care Lvl 3 Diagnoses Acute respiratory failure with hypoxia J96.01 Hypertension I10 Hypertension type: essential hypertension GERD (gastroesophageal reflux disease) K21.9 Esophagitis presence: esophagitis presence not specified Tobacco abuse Z72.0 Alcohol dependence F10.20 Substance use status: uncomplicated Dyslipidemia E78.5 (1) Alcohol dependence Substance use status: uncomplicated Qualified Code(s): F10.20 - Alcohol dependence, uncomplicated (2) GERD (gastroesophageal reflux disease) Esophagitis presence: esophagitis presence not specified Qualified Code(s): K21.9 - Gastro-esophageal reflux disease without esophagitis (3) Hypertension Hypertension type: essential hypertension Qualified Code(s): I10 - Essential (primary) hypertension
[2021-07-08] MEDS: amLODIPine BESYLATE 5 MG TAB PO SCH (17:06)
[2021-07-08] MEDS: BUDESONIDE 0.5 MG/2 ML VIAL (PULMICORT) NEB SCH (19:21)
[2021-07-08] MEDS: ATORVASTATIN 10 MG TAB PO SCH (20:39)
[2021-07-08] MEDS ORDERED: diphenhydrAMINE Capsule 25 MG CAP PO ONE (20:46)
[2021-07-09] MEDS: ALBUT/IPRATROP 3MG/0.5MG NEB 3 ML VIAL INH SCH ×3 (00:04→13:13)
[2021-07-09] MEDS: ACETAMINOPHEN 325 MG TAB PO PRN (05:39)
[2021-07-09 06:24] LABS: BUN Creatinine Ratio 31.1 (10-20); Calcium 8.5 mg/dl (8.5-10.1); Creatinine Clr Calc Pharmacy 112.8 ml/min; Est GFR (African American) 118.3 ml/min; Est GFR (Non-African American) 102.1 ml/min
[2021-07-09] MEDS: BUDESONIDE 0.5 MG/2 ML VIAL (PULMICORT) NEB SCH (07:14)
[2021-07-09] MEDS: FLUoxetine HCL 20 MG CAP PO SCH (08:41)
[2021-07-09] MEDS: PANTOprazole 40 MG TAB PO SCH (08:41)
[2021-07-09] MEDS: guaiFENesin 600 MG TABCR PO SCH (08:42)
[2021-07-09] MEDS: amLODIPine BESYLATE 5 MG TAB PO SCH (08:42)
[2021-07-09] MEDS: DOXYCYCLINE HYCLATE 100 MG CAP PO SCH (08:42)
[2021-07-09] MEDS: FUROSEMIDE 20 MG TAB PO SCH (08:42)
[2021-07-09] MEDS: THIAMINE HCL 100 MG TAB PO SCH (08:42)
[2021-07-09] MEDS: ENOXAPARIN INJ 40 MG/0.4 ML SYR SQ SCH (08:43)
[2021-07-09] MEDS: lisinopril 40 MG TAB PO SCH (08:43)
[2021-07-09] MEDS ORDERED: predniSONE 20 MG TAB PO SCH (09:00)
--- NOTE | 2021-07-09 11:28 | Discharge Summary ---
Date of Service July 09, 2021 Admission HPI Per Admitting Provider Patient is a 56-year-old female with past medical history of HTN, GERD, depression, alcohol abuse, and tobacco abuse who presents today with shortness of breath. Patient states she noticed last Friday, (1 week ago) that she was becoming more short of breath with activities that she previously had been able to tolerate. She states she does not become short of breath often, occasionally will use her partner's albuterol inhaler which has alleviated any instances of shortness of breath in the past. In addition to this, she notes that she has a chronic productive cough that has worsened. Sputum has been green, without blood, she states she has been coughing up more sputum than typically. She is woken up several times middle of the night over the past week short of breath, has been propping herself up with several pillows or sleeping in her recliner to the shortness of breath when lying flat. She has also had chills for the past week, but no fever recorded. she denies sudden increase in weight, myalgias, fatigue, chest pain, palpitations, unilateral leg swelling, calf pain, lower extremity edema, nausea, vomiting, abdominal pain, constipation, diarrhea, increased urinary frequency or hesitancy, dysuria, or hematuria. Denies past medical history of DVT or PE, does not have a diagnosis of COPD, however she has smoked about 1 pack a day since eighth grade. Principal Diagnosis acute hypoxic respiratory failure suspected copd w/ acute exacerbation Discharge Exam GENERAL: 56 yo overweight WF. NAD. LUNGS: Good air exchange. Nonlabored. Few scattered expiratory wheezes noted. CARDIOVASCULAR: Regular rate and rhythm. No M/G/R. No JVD. ABDOMEN: Soft, non-tender and non-distended. BS normal x 4 quad. EXTREMITIES: No edema. Non-tender. Peripheral pulses +2/4. NEUROLOGIC: A&O x3. PSYCHIATRIC: Cooperative. Appropriate mood and affect. SKIN: Warm, dry, intact. No rashes or lesions. Discharge Data Allergies Allergy/AdvReac Type Severity Reaction Status Date / Time No Known Allergies Allergy Unknown Verified 07/06/21 19:50 Consultations 07/06/21 20:24 ED Decision to Admit Stat Ordered Studies Chest X-Ray 07/06/21 18:30 XR chest 1V portable CLINICAL HISTORY: SOB. COMPARISON STUDY: 11/05/2018 TECHNIQUE: 1 view of the chest FINDINGS: Single frontal view of the chest demonstrates the cardiomediastinal silhouette to be within normal limits. The lungs are clear of alveolar opacities. There is no evidence for pleural effusion. There is no evidence for vascular congestion. There is no acute osseous pathology. IMPRESSION: 1. No acute cardiopulmonary disease. ACT 112: Negative or not required by law. Electronically signed by: Juan Rodriguez M.D. 07/06/2021 6:[address] 07/07/21 13:06 CT chest diagnostic wo con CLINICAL HISTORY: dyspnea, cough, neg cxr TECHNIQUE: Multidetector row helical CT of the chest was performed. Coronal and sagittal reformations were obtained. Automated dose lowering techniques and/or adjustment according to patient size were utilized for this exam. Comparison: Comparison is made to chest one view 07/06/2021 FINDINGS: Lungs and pleura: Tree-in-bud nodularity is seen most prominently in the right lower lobe. Bronchial wall thickening is seen. There is a 4 mm nodule in the left upper lobe (series 4 image 102) and a 3 mm nodule in the right upper lobe (image 110) Heart and pericardium: Heart size is normal. No pericardial effusion. Vessels: Unremarkable. Mediastinum and sunil: Subcentimeter lymph nodes are seen. Chest wall and lower neck: Unremarkable. Abdomen: Unremarkable. Bones: Unremarkable. IMPRESSION: Tree in bud nodularity, most prominent in the right lower lobe, likely represents infectious/inflammatory process. No garfield consolidation. ACT 112: Negative or not required by law. Electronically signed by: Amarjit Evans M.D. 07/07/2021 1:51 PM Hospital Course (1) Acute respiratory failure with hypoxia: -O2 initially in 80s on room air upon evaluation, sats improved to 90s on 4 L in ED. This is most likely a COPD exacerbation, patient does not carry diagnosis however she has smoked a pack a day since the eighth grade and reports a chronic cough that has been productive of sputum for years now. Her symptoms improved after receiving an albuterol treatment and 10 mg IV dexamethasone in ED. -DuoNebs scheduled every 6, albuterol every 2 as needed. -Started on doxycycline in ED, which was continued 100 mg p.o. twice daily. -Mucinex 1200 mg twice daily ordered. -Solumedrol 40 mg IV every 8 hours--transitioned to oral Prednisone this morning (07/09) -Sputum culture ordered, final pending but thus far just moderate normal yuval noted -CT chest w/o contrast demonstrated some pulmonary nodules that will require outpatient f/u as well as tree-in-bud nodularity in RLL -Added Budesonide BID on 07/08 -Goal pulse ox 88-92% -- able to wean O2 off, pulse ox 91% on room air, desaturated to 88% briefly w/ ambulation but recovered quickly to 93% -Will require o/p PFTs in 6-8 weeks to confirm suspected diagnosis of COPD--defer to pcp to arrange (2) Hypertension: -Continue lisinopril and Lasix -Not well controlled, will add Norvasc 10mg daily, first dose now (3) GERD (gastroesophageal reflux disease): -Continue PPI. (4) Tobacco abuse: -Has smoked 1 pack a day since eighth grade, however she states she quit 1 week ago when shortness of breath became an issue. -Declined nicotine patch for now (5) Alcohol dependence: -In remission, continue thiamine supplement. -Reports that she hasn't drank any ETOH in over a week (6) Dyslipidemia: Continue atorvastatin 10 mg. Patient is medically and hemodynamically stable for discharge today. Supplemental oxygen was able to be weaned off, even with ambulation she only desaturates briefly to 88% on room air and recovers up into the 90s with rest. Suspect that this reflects her baseline. She had no shortness of breath with this. We will plan to transition her back home to complete course of antibiotics and steroid taper. Albuterol inhaler will also be sent. She will need PFTs done in 6 weeks to confirm suspected diagnosis of COPD. Recommend follow-up with her primary care provider within 1 week of discharge. We have thoroughly discussed importance of tobacco cessation. Above plan of care has been discussed with Dr. Phillips who is also in agreement. Total Time Total Time Spent Total Time Spent (In Minutes): >30 minutes Discharge Plan Discharge Items Patient Disposition: Home - Self-Care Reason For Visit: SHORTNESS OF BREATH Discharge Diagnosis: shortness of breath likely due to undiagnosed chronic lung disease Activity: Resume your previous activity Non-emergency contact: Primary Care Provider Call non-emergency contact if: you have any medication questions and your symptoms worsen Follow-up/Referrals: Aby Chandra CRNP [Primary Care Provider] - 07/16/21 1:00 pm Diet: Heart Healthy Addtl Attending Provider Instructions: You were hospitalized due to shortness of breath which is presumed to be due to an exacerbation of undiagnosed lung disease which is from years of smoking. The only way to confirm this suspected diagnosis is to undergo pulmonary function tests which your primary care provider should arrange in about 6 weeks when you have completely recovered from your acute illness. In the meantime, you will be sent home with a course of antibiotics and steroids. The antibiotic is Doxycycline 100mg and is to be taken twice daily. Your next dose is due this evening (07/09). It needs to be taken at least an hour before laying down and should not be taken with milk or calcium products as it can inhibit the absorption. The steroids will be Prednisone, you will take these as directed. They should be taken in the morning with food. It is not uncommon to notice an increase in your appetite or irritability. These are common side effects. You will taper them down and eventually stop over the next few days. I am also sending you home with an Albuterol inhaler which can be used in the event you experience abrupt shortness of breath or feel that you are wheezing. This will help to open up your airways and help you breathe easier. If you get no relief after use and are feeling short of breath, you will need to return to the emergency department. Tobacco use cessation is STRONGLY encouraged. I would also advise your partner to stop smoking too. Typically couples that stop smoking together are more successful, rather than just one trying to do it alone. In addition, ongoing tobacco exposure can continue to damage your lungs. You were noted to have small pulmonary nodules on the scan that was done of your lungs. One nodule is in the right upper lobe and one is in your left upper lobe. These should be followed up in about 3-6 months to ensure that there has been no change in the size/appearance especially due to your history of tobacco use. Your primary care provider should arrange for f/u CT scan in that time frame. Last, your blood pressure has been elevated during your stay. I have started you on a medication called Norvasc 10mg once a day. This to help manage your blood pressure. You need to take this every day, maintain <2g per day of salt intake, read labels, and keep caffeine to a minimum. Continue taking your Lasix and Lisinopril as prescribed and do not skip doses. I recommend f/u with your primary care provider within 1 week of discharge. Pending Studies at Discharge: No Stand-Alone Forms: My [facility], Smoking Cessation Medications and DC Order Prescriptions: New doxycycline hyclate 100 mg Capsule 100 mg PO BID Qty: 9 RF: 0 amlodipine [Norvasc] 5 mg Tablet 10 mg PO QAM Qty: 30 RF: 0 prednisone 10 mg tablet 10 mg PO DAILY Qty: 20 RF: 0 albuterol sulfate 90 mcg/actuation HFA aerosol inhaler 2 inh inhalation Q4H PRN (Reason: shortness of breath or wheezing) Qty: 8.5 RF: 0 Continued atorvastatin 10 mg tablet 10 mg PO HS Qty: 90 RF: 3 furosemide 20 mg tablet 20 mg PO QAM Qty: 90 RF: 3 omeprazole 20 mg capsule,delayed release(DR/EC) 20 mg PO QAM Qty: 90 RF: 3 fluoxetine 40 mg capsule 40 mg PO DAILY Qty: 90 RF: 3 thiamine HCl (vitamin B1) [Vitamin B-1] 100 mg tablet 100 mg PO QAM Qty: 30 RF: 5 lisinopril 40 mg tablet 40 mg PO DAILY RF: 0 Discharge Orders: Discharge Order (Routine); Ordered 07/09/21 Ordered By: Iris Lester Admission Data Admit Date/Time: 07/06/21 21:10 Attending Provider: Omid Phillips Admit Provider: Raymundo Abraham Primary Care Provider: Aby Chandra Other Providers: Raymundo Abraham Other Interventions: Discharge Summary Assessment (RN) Last Done: 07/09/21 11:10 Coding Level of Care Code D/C DAY MANAGEMENT >30 MINS Diagnoses Acute respiratory failure with hypoxia J96.01 Hypertension I10 Hypertension type: essential hypertension GERD (gastroesophageal reflux disease) K21.9 Esophagitis presence: esophagitis presence not specified Tobacco abuse Z72.0 Alcohol dependence F10.20 Substance use status: uncomplicated Dyslipidemia E78.5
== END 2021-07-09 15:37 | disposition home or self-care (01) | DRG 189 ==
LOC: ED 17:46 → SUATTDRO 21:10 → 3N 21:10
DX: E87.1 Hypo-osmolality and hyponatremia; F17.210 Nicotine dependence, cigarettes, uncomplicated; Z96.662 Presence of left artificial ankle joint; J96.01 Acute respiratory failure with hypoxia; F10.21 Alcohol dependence, in remission; E66.3 Overweight; Z68.36 Body mass index [BMI] 36.0-36.9, adult; J44.1 Chronic obstructive pulmonary disease with (acute) exacerbation; E78.5 Hyperlipidemia, unspecified; K21.9 Gastro-esophageal reflux disease without esophagitis; Z90.49 Acquired absence of other specified parts of digestive tract; Z71.6 Tobacco abuse counseling; F41.8 Other specified anxiety disorders; I10 Essential (primary) hypertension